=== PATIENT | male | born 1960 | race Caucasian/White ===

== ENCOUNTER 2016-12-29 07:31 | Inpatient (IN) | payer MEDICARE, MEDICAID ==
[2016-12-29] VITALS (29 sets, daily range): BP systolic 166–252; BP diastolic 76–151; PULSE 60–82; RESP 11–29; TEMP 97.7–98.3; O2SAT 97–100
[~2016-12-29] VITALS: Ht 170.2 cm; Wt 67.2 kg
[~2016-12-29 07:31] MED LIST: AMLO5 PO; ATOR10 PO; ECOT81TA2 PO; HYDR-2768 PO; HYDRA50 PO; PRED10 PO
--- NOTE | 2016-12-29 07:59 | PD ---
HPI Chief Complaint: Neuro Symptoms/ Deficits Time Seen by Provider: 07:41 Travel History International Travel<30 days: No Contact w/Intl Traveler<30days: No Traveled to known affect area: No History of Present Illness HPI This patient presents with acute neurologic deficit. At 2 AM last night he woke up and was slurring his speech and had some right sided leg weakness and felt dizzy. He did not of headache or head injury. He went back to bed and when he woke up this morning symptoms persisted and he came to the ER. Duration is at least 6 hours but could've been longer given he was sleeping. Patient has history of stroke and intracranial hemorrhage and has a GROUNDS CARETAKER shunt. He is very noncompliant. He doesn't go to a physician or take any medications like his posterior. He doesn't treat his hypertension. He arrives with a blood pressure of 252 systolic. His last cocaine use was 5 years ago. He continues to smoke. He does not take his daily aspirin. Symptoms are severe. No alleviating factors. Symptoms exacerbated by noncompliance PFSH Past Medical History Hx Anticoagulant Therapy: Yes (162 ASA) Arthritis: Yes (HANDS) Asthma: No Autoimmune Disease: No Blood Disorders: No Anxiety: No Depression: No Heart Rhythm Problems: Yes (SVT) Cancer: No Cardiac Catheterization: Yes (2006) Cardiovascular Problems: Yes High Cholesterol: No Chemotherapy: No Chest Pain: Yes Congestive Heart Failure: No COPD: No Cerebrovascular Accident: Yes Coronary Artery Disease: Yes Diabetes: No Diminished Hearing: No Endocrine: No Gastrointestinal Disorders: No GERD: Yes Glaucoma: No Genitourinary: No Headaches: Yes (OCCASSIONALLY) Hepatitis: No Hiatal Hernia: No Hypertension: Yes Immune Disorder: No Implanted Vascular Access Dvce: No Kidney Stones: No Musculoskeletal: No Neurologic: No Psychiatric: No Reproductive: No Respiratory: Yes Immunizations Current: No Migraines: No Myocardial Infarction: No Radiation Therapy: No Renal Failure: No Seizures: Yes ("YEARS AGO") Sickle Cell Disease: No Sleep Apnea: No Thyroid Disease: No Ulcer: No PNEUMOCCOCAL Vaccine (Year): 1 ?: Not Past Surgical History Abdominal Surgery: No AICD: No Appendectomy: No Arteriovenous Shunt: No Cardiac Surgery: Yes (HEART STENT) Cholecystectomy: No Coronary Stent: Yes (X 1) Ear Surgery: No Endocrine Surgery: No Eye Surgery: No Genitourinary Surgery: No Gynecologic Surgery: No Insulin Pump: No Joint Replacement: No Neurologic Surgery: Yes (BRAIN ANUERYSM 2015, SHUNT IN BRAIN) Oral Surgery: No Pacemaker: No Thoracic Surgery: No Tonsillectomy: Yes Other Surgery: Yes (TRACH) Social History Alcohol Use: Yes (2 BEERS A DAY) Tobacco Use: Yes (1/2 PPD) Substance Use: Yes ("YEARS AGO, A LITTLE OF EVERYTHING") Allergies-Medications (Allergen,Severity, Reaction): Coded Allergies: lisinopril (Unverified Allergy, Severe, Angioedema, 12/29/16) Reported Meds & Prescriptions Reported Meds & Active Scripts Active Review of Systems General / Constitutional: No: Fever Eyes: No: Visual changes HENT: Positive: Lightheadedness, No: Headaches Cardiovascular: No: Chest Pain or Discomfort Respiratory: No: Shortness of Breath Gastrointestinal: No: Abdominal Pain Genitourinary: No: Dysuria Musculoskeletal: Positive: Weakness, No: Pain Skin: No Rash Neurologic: Positive: Weakness, Dizziness, Slurred Speech Psychiatric: No: Depression Endocrine: No: Polydipsia Hematologic/Lymphatic: No: Easy Bruising Physical Exam Narrative GENERAL: Well-nourished, well-developed patient in no apparent distress. SKIN: Focused skin assessment reveals no rash and nodules. Skin is Warm and dry. HEAD: Atraumatic. HAs a right sided GROUNDS CARETAKER shunt without tenderness or erythema . EYES: Pupils equal and round. No scleral icterus. No injection or drainage. ENT: No nasal bleeding or discharge. Mucous membranes pink and moist. NECK: Trachea midline. No JVD. CARDIOVASCULAR: Regular rate and rhythm. No murmur appreciated. RESPIRATORY: No accessory muscle use. Clear to auscultation. Breath sounds equal bilaterally. GASTROINTESTINAL: Abdomen soft, non-tender, nondistended. Hepatic and splenic margins not palpable. MUSCULOSKELETAL: No obvious deformities. No clubbing. No cyanosis. No edema. NEUROLOGICAL: Awake and alert. Has a right sided facial droop. Motor exam reveals right sided leg weakness but symmetrical arm strength. Slurring of speech. Sensation subjectively intact to light and sharp touch PSYCHIATRIC: Appropriate mood and affect; insight and judgment poor . Data Data Last Documented VS Vital Signs Date Time Temp Pulse Resp B/P (MAP) Pulse Ox O2 Delivery O2 Flow Rate FiO2 12/29/16 09:16 68 18 197/88 (124) 99 Room Air 12/29/16 07:35 97.8 Orders Orders Electrocardiogram (12/29/16 07:50) Prothrombin Time / Inr (Pt) (12/29/16 07:50) Act Partial Throm Time (Ptt) (12/29/16 07:50) Complete Blood Count With Diff (12/29/16 07:50) Basic Metabolic Panel (Bmp) (12/29/16 07:50) Ct Brain W/O Iv Contrast(Rout) (12/29/16 07:50) Ecg Monitoring (12/29/16 07:50) Iv Access Insert/Monitor (12/29/16 07:50) Oximetry (12/29/16 07:50) Blood Glucose (12/29/16 07:50) Sodium Chloride 0.9% Flush (Ns Flush) (12/29/16 08:00) Labetalol Inj (Trandate Inj) (12/29/16 08:00) Admit Order (Ed Use Only) (12/29/16 09:39) Labs Laboratory Tests Test 12/29/16 07:35 White Blood Count 8.0 TH/MM3 Red Blood Count 4.17 MIL/MM3 Hemoglobin 12.0 GM/DL Hematocrit 35.9 % Mean Corpuscular Volume 86.2 FL Mean Corpuscular Hemoglobin 28.8 PG Mean Corpuscular Hemoglobin Concent 33.5 % Red Cell Distribution Width 14.3 % Platelet Count 196 TH/MM3 Mean Platelet Volume 9.4 FL Neutrophils (%) (Auto) 56.8 % Lymphocytes (%) (Auto) 27.4 % Monocytes (%) (Auto) 7.3 % Eosinophils (%) (Auto) 7.4 % Basophils (%) (Auto) 1.1 % Neutrophils # (Auto) 4.5 TH/MM3 Lymphocytes # (Auto) 2.2 TH/MM3 Monocytes # (Auto) 0.6 TH/MM3 Eosinophils # (Auto) 0.6 TH/MM3 Basophils # (Auto) 0.1 TH/MM3 CBC Comment DIFF FINAL Differential Comment Prothrombin Time 10.2 SEC Prothromb Time International Ratio 0.9 RATIO Activated Partial Thromboplast Time 31.1 SEC Blood Urea Nitrogen 32 MG/DL Creatinine 1.80 MG/DL Random Glucose 104 MG/DL Calcium Level 8.6 MG/DL Sodium Level 142 MEQ/L Potassium Level 4.3 MEQ/L Chloride Level 109 MEQ/L Carbon Dioxide Level 26.0 MEQ/L Anion Gap 7 MEQ/L Estimat Glomerular Filtration Rate 39 ML/MIN [facility] Medical Decision Making Medical Screen Exam Complete: Yes Emergency Medical Condition: Yes Medical Record Reviewed: Yes Differential Diagnosis Ischemic CVA, hemorrhagic CVA, hypertensive emergency Narrative Course I have reviewed the patient's electronic medical record. Reviewed his neurologic consultation from one year ago when he was admitted for ischemic stroke Patient arrives critically ill with acute neurologic deficit a blood pressure of 252 systolic IV placed I gave him 20 mg IV labetalol Brain CT is negative for hemorrhage. GROUNDS CARETAKER shunt in good position CBC normal Metabolic profile shows renal insufficiency with creatinine 1.8 Coagulation studies are normal I reviewed his EKG which shows sinus rhythm without ectopy or ST elevation. He does have inverted T waves in anterior and lateral leads Extended cardiac monitoring reveals sinus rhythm without ectopy Blood pressure after labetalol as 190s systolic and we will employ permissive hypertension Patient having acute ischemic stroke and hypertensive urgency Discussed with hospitalist will admit I gave him rectal aspirin Critical Care Narrative Aggregate critical care time was 35 minutes. Time to perform other separately billable procedures was not included in the critical care time. My time did not include minutes spent treating any other patients simultaneously or on activities that did not directly contribute to the patient's treatment. The services I provided to this patient were to treat and/or prevent clinically significant deterioration that could result in: Permanent neurologic deficit, brain stem herniation, cardiopulmonary arrest I provided critical care services requiring my management, as noted below: Chart data review, documentation time, medication orders and management, vital sign assessments/reviewing monitor data, ordering and reviewing lab tests, ordering and interpreting/reviewing x-rays and diagnostic studies, care of the patient and discussion of the patient with the admitting physicians. Diagnosis Primary Impression: Ischemic cerebrovascular accident (CVA) Additional Impression: Hypertensive urgency Admitting Information Admitting Physician Requests: Admit Raj Lubin MD Dec 29, 2016 07:59
[2016-12-29] MEDS ORDERED: LABETALOL HCL 100 MG/20 ML VIAL IV PUSH ONE (08:00)
[2016-12-29] MEDS ORDERED: SODIUM CHLORIDE 0.9% FLUSH 10 ML FLUSH IVF PRN (08:00)
[2016-12-29 08:01] LABS: AUTOMATED NEUTROPHIL # 4.5 TH/MM3 (1.8-7.7); BASOPHIL # 0.1 TH/MM3 (0-0.2); BASOPHIL % 1.1 % (0.0-2.0); EOSINOPHIL # 0.6 TH/MM3 (0-0.4); EOSINOPHIL % 7.4 % (0.0-4.0); HEMATOCRIT 35.9 % (39.0-51.0); HEMO FLAGS DIFF FINAL; LYMPH % 27.4 % (9.0-44.0); LYMPHOCYTE # 2.2 TH/MM3 (1.0-4.8); MEAN CELL VOLUME 86.2 FL (80.0-100.0); MEAN CORPUSCULAR HEMOGLOBIN 28.8 PG (27.0-34.0); MEAN CORPUSCULAR HGB CONC 33.5 % (32.0-36.0); MONO % 7.3 % (0.0-8.0); NEUT % 56.8 % (16.0-70.0); PLATELET COUNT 196 TH/MM3 (150-450); RED BLOOD COUNT 4.17 MIL/MM3 (4.50-5.90); RED CELL DISTRIBUTION WIDTH 14.3 % (11.6-17.2)
[2016-12-29 08:15] LABS: POTASSIUM 4.3 MEQ/L (3.5-5.1)
[2016-12-29 08:21] LABS: APTT (PATIENT) 31.1 SEC (24.3-30.1); INTERNATIONAL NORMALIZED RATIO 0.9 RATIO; PROTHROMBIN TIME - PATIENT 10.2 SEC (9.8-11.6)
--- NOTE | 2016-12-29 08:30 | RADRPT ---
EXAM DATE/TIME: 12/29/2016 08:15 [facility] COMPARISON: CT BRAIN W/O CONTRAST, November 02, 2015, 17:23. INDICATIONS : Slurred speech and right lower extremity weakness since early this morning. RADIATION DOSE: 64.21 CTDIvol (mGy) MEDICAL HISTORY : Cerebrovascular disease. Aneurysm, intracranial. Cardiovascular diseaseHypertension. SURGICAL HISTORY : Coronary artery stent. 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 Aneurysm repair. ENCOUNTER: Initial ACUITY: 1 day PAIN SCALE: 0/10 LOCATION: cranial TECHNIQUE: Multiple contiguous axial images were obtained of the head. Using automated exposure control and adj ustment of the mA and/or kV according to patient size, radiation dose was kept as low as reasonably a chievable to obtain optimal diagnostic quality images. DICOM format image data is available electro nically for review and comparison. FINDINGS: CEREBRUM: There's been a right-sided frontal ventriculostomy catheter with tip overlying the third ventricle . The ventricles are normal for age. No evidence of midline shift, mass lesion, hemorrhage or acute i nfarction. There are multiple low-density areas within the basal ganglia and deep white matter tracts consistent with old lacunar infarcts. Its unchanged since October 2015. No extra-axial fluid [place] ections are seen. Aneurysm coil is stable POSTERIOR FOSSA: The cerebellum and brainstem are intact. The 4th ventricle is midline. The cerebellopontine angle i s unremarkable. EXTRACRANIAL: The visualized portion of the orbits is intact. SKULL: The calvaria is intact. No evidence of skull fracture. CONCLUSION: No evidence of acute hemorrhage, edema, mass or mass effect. Ventriculostomy catheter in good positio n. No concerning masses are identified. No interval change. Gopi Vaca MD on December 29, 2016 at 8:27 Board Certified Radiologist. This report was verified electronically.
[2016-12-29] MEDS ORDERED: ASPIRIN 300 MG SUPP RECTAL ONE (09:45)
[2016-12-29] MEDS ORDERED: SODIUM CHLOR 0.9% 1000 ML INJ 1,000 ML IV SCH (10:56)
[2016-12-29] MEDS ORDERED: cloNIDine HCL 0.1 MG TAB PO PRN (11:00)
[2016-12-29] MEDS ORDERED: GLUCAGON 1 MG/ML VIAL OTHER PRN (11:00)
[2016-12-29] MEDS ORDERED: DEXTROSE 50% IN WATER 50 ML VIAL(D50) IV PUSH PRN (11:00)
[2016-12-29] MEDS ORDERED: SODIUM CHLORIDE 0.9% FLUSH 5 ML FLUSH IV FLUSH PRN (11:00)
[2016-12-29] MEDS: INSULIN ASPART SUPPLEMENTAL SCALE SQ SCH ×3 (12:00→21:00)
[2016-12-29 12:42] LABS: ALT (GPT) 15 U/L (12-78); AST (GOT) 13 U/L (15-37)
[2016-12-29 12:45] LABS: ALKALINE PHOSPHATASE 95 U/L (45-117)
[2016-12-29] MEDS ORDERED: LABETALOL HCL 100 MG/20 ML VIAL IV PUSH PRN (12:45)
[2016-12-29 12:47] LABS: INDIRECT BILIRUBIN 0.4 MG/DL (0.0-0.8); TOTAL BILIRUBIN ADULT 0.5 MG/DL (0.2-1.0)
--- NOTE | 2016-12-29 13:19 | EKG ---
Date Performed: 12/29/2016 Time Performed: 07:39:49 PTAGE: 56 years EKG: Sinus rhythm ST/ T-WAVE ABNORMALITY, CONSIDER ANTEROLATERAL ISCHEMIA ABNORMAL ECG PREVIOUS TRACING : 11/03/2015 04.31 No significant change from previous tracing noted. DOCTOR: Emmett Garcia Interpretating Date/Time 12/29/2016 13:17:14
--- NOTE | 2016-12-29 13:34 | HHI.HP ---
[facility] Service [facility] Primary Care Physician No Primary Care Physician Admission Diagnosis acute ischemic CVA,hypertensive urgency Diagnoses: (1) Ischemic cerebrovascular accident (CVA) (2) Accelerated hypertension Travel History International Travel<30 Days: No Contact w/Intl Traveler <30 Da: No Traveled to Known Affected Are: No History of Present Illness This is a pleasant 56 year-old male with past history of ischemic CVA , subarachnoid hemorrhage status post DUPLICATING MACHINE SERVICER shunt, hypertension, cocaine use, tobaccoism who presents to the ER today with slurred speech and some right- sided weakness beginning last night at about 2 AM. Patient waited until later in the morning to present to the ER. Patient currently states that his left leg feels numb and heavy. He states he currently does not have any weakness in the left arm. He does complain of difficulty speaking. The patient is supposed to be on blood pressure medication but does not take it. He does not take aspirin or a statin. The patient continues to smoke tobacco. The patient does have a history of cocaine use but denies any recent cocaine use over the past 5 years. Symptoms are severe. No palliative or provocative factors. In the emergency department a head CT was ordered which was negative for acute CVA or bleed, did show the DUPLICATING MACHINE SERVICER shunt in good position. Systolic blood pressure was 252 and the patient received IV labetalol. He received 300 mg rectal aspirin. Patient was admitted to the ICU for further care. Patient has passed a nursing bedside swallow evaluation. Review of Systems Constitutional: DENIES: Fever, Chills Eyes: DENIES: Blurred vision, Diplopia Ears, nose, mouth, throat: DENIES: Tinnitus, Throat pain Respiratory: DENIES: Cough, Shortness of breath Cardiovascular: DENIES: Chest pain, Palpitations Gastrointestinal: DENIES: Abdominal pain, Nausea, Vomiting Genitourinary: DENIES: Hematuria, Dysuria Musculoskeletal: DENIES: Back pain, Neck pain Integumentary: DENIES: Pruritus, Rash Hematologic/lymphatic: DENIES: Lymphadenopathy Neurologic: COMPLAINS OF: Localized weakness, Speech Problems, DENIES: Headache Psychiatric: DENIES: Anxiety, Confusion Past Family Social History Past Medical History Hypertension DUPLICATING MACHINE SERVICER shunt status post subarachnoid hemorrhage in 2015, shunt revision in 2016 Right MCA stroke in 2016 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 Tobaccoism Coronary artery disease with left heart catheterization in 2007 and stent to the LAD History of cocaine use greater than 5 years ago Past Surgical History DUPLICATING MACHINE SERVICER shunt and revision Tonsillectomy Tracheostomy Reported Medications Allergies Coded Allergies Type Severity Reaction Last Updated Verified lisinopril Allergy Severe Angioedema 12/29/16 No Active Scripts Medications Dose Route/Sig Max Daily Dose Days Date Category Allergies: Coded Allergies: lisinopril (Unverified Allergy, Severe, Angioedema, 12/29/16) Family History Heart disease in his father Social History Denies alcohol use. Does smoke tobacco. Physical Exam Vital Signs Vital Signs Date Time Temp Pulse Resp B/P (MAP) Pulse Ox O2 Delivery O2 Flow Rate FiO2 12/29/16 12:24 65 179/92 (121) 99 12/29/16 12:18 64 214/91 (132) 99 12/29/16 12:15 64 98 12/29/16 12:04 217/94 (135) 12/29/16 11:00 97.7 78 17 214/151 (172) 97 12/29/16 10:44 68 18 200/93 (128) 97 Room Air 12/29/16 09:16 68 18 197/88 (124) 99 Room Air 12/29/16 08:30 64 18 199/97 (131) 100 Room Air 12/29/16 08:06 18 100 Room Air 12/29/16 07:35 97.8 82 20 252/127 (168) 100 Physical Exam GENERAL: Well-nourished, well-developed lean male patient. SKIN: Warm and dry. EYES: No scleral icterus. No injection or drainage. NECK: Supple, trachea midline. No JVD or lymphadenopathy. CARDIOVASCULAR: Regular rate and rhythm without murmurs, gallops, or rubs. RESPIRATORY: Breath sounds equal bilaterally. No accessory muscle use. GASTROINTESTINAL: Bowel sounds normal. Abdomen soft, non-tender, nondistended. EXTREMITIES: No cyanosis, or edema. NEUROLOGICAL: Awake, alert, and oriented x 3. Minimal left lower extremity and left upper extremity weakness. Significant aphasia. Face symmetric. Cranial nerves II through XII intact. Pupils equal and reactive. Laboratory Laboratory Tests Test 12/29/16 07:35 White Blood Count 8.0 Red Blood Count 4.17 Hemoglobin 12.0 Hematocrit 35.9 Mean Corpuscular Volume 86.2 Mean Corpuscular Hemoglobin 28.8 Mean Corpuscular Hemoglobin Concent 33.5 Red Cell Distribution Width 14.3 Platelet Count 196 Mean Platelet Volume 9.4 Neutrophils (%) (Auto) 56.8 Lymphocytes (%) (Auto) 27.4 Monocytes (%) (Auto) 7.3 Eosinophils (%) (Auto) 7.4 Basophils (%) (Auto) 1.1 Neutrophils # (Auto) 4.5 Lymphocytes # (Auto) 2.2 Monocytes # (Auto) 0.6 Eosinophils # (Auto) 0.6 Basophils # (Auto) 0.1 CBC Comment DIFF FINAL Differential Comment Prothrombin Time 10.2 Prothromb Time International Ratio 0.9 Activated Partial Thromboplast Time 31.1 Blood Urea Nitrogen 32 Creatinine 1.80 Random Glucose 104 Calcium Level 8.6 Sodium Level 142 Potassium Level 4.3 Chloride Level 109 Carbon Dioxide Level 26.0 Anion Gap 7 Estimat Glomerular Filtration Rate 39 Total Bilirubin 0.5 Direct Bilirubin 0.1 Indirect Bilirubin 0.4 Aspartate Amino Transf (AST/SGOT) 13 Alanine Aminotransferase (ALT/SGPT) 15 Alkaline Phosphatase 95 Total Protein 7.1 Albumin 3.2 Result Diagram: 12/29/16 0735 12/29/16 0735 Caprini VTE Risk Assessment Caprini VTE Risk Assessment: No/Low Risk (score <= 1) Caprini Risk Assessment Model Point Value = 1 Point Value = 2 Point Value = 3 Point Value = 5 Age 41-60 Minor surgery BMI > 25 kg/m2 Swollen legs Varicose veins or History of unexplained or recurrent spontaneous Oral contraceptives or hormone replacement Sepsis (< 1 month) Serious lung disease, including pneumonia (< 1 month) Abnormal pulmonary function Acute myocardial infarction Congestive heart failure (< 1 month) History of inflammatory bowel disease Medical patient at bed rest Age 61-74 Arthroscopic surgery Major open surgery (> 45 min) Laparoscopic surgery (> 45 min) Malignancy Confined to bed (> 72 hours) Immobilizing plaster cast Central venous access Age >= 75 History of VTE Family history of VTE Factor V Leiden Prothrombin [id number] Lupus anticoagulant Anticardiolipin antibodies Elevated serum homocysteine Heparin-induced thrombocytopenia Other congenital or acquired thrombophilia Stroke (< 1 month) Elective arthroplasty Hip, pelvis, or leg fracture Acute spinal cord injury (< 1 month) Prophylaxis Regimen Total Risk Factor Score Risk Level Prophylaxis Regimen 0-1 Low Early ambulation 2 Moderate Order ONE of the following: *Sequential Compression Device (SCD) *Heparin 5000 units SQ BID 3-4 Higher Order ONE of the following medications: *Heparin 5000 units SQ TID *Enoxaparin/Lovenox 40 mg SQ daily (WT < 150 kg, CrCl > 30 mL/min) *Enoxaparin/Lovenox 30 mg SQ daily (WT < 150 kg, CrCl > 10-29 mL/min) *Enoxaparin/Lovenox 30 mg SQ BID (WT < 150 kg, CrCl > 30 mL/min) AND/OR *Sequential Compression Device (SCD) 5 or more Highest Order ONE of the following medications: *Heparin 5000 units SQ TID (Preferred with Epidurals) *Enoxaparin/Lovenox 40 mg SQ daily (WT < 150 kg, CrCl > 30 mL/min) *Enoxaparin/Lovenox 30 mg SQ daily (WT < 150 kg, CrCl > 10-29 mL/min) *Enoxaparin/Lovenox 30 mg SQ BID (WT < 150 kg, CrCl > 30 mL/min) AND *Sequential Compression Device (SCD) Assessment and Plan Assessment and Plan -Likely acute right hemispheric stroke, patient has history of right MCA stroke in 2016 - the patient presented with some left-sided weakness and dysarthria. Head CT negative. We'll proceed with MRI, Doppler carotid ultrasound, Holter monitor, echocardiogram, check lipid profile. Risk factors for stroke include tobacco use, uncontrolled hypertension. We'll consult neurology. Continue with aspirin. Consult PT ST and OT. -Chronic kidney disease stage III. Will repeat BMP in the morning. -Accelerated hypertension - will use labetalol IV when necessary systolic blood pressure greater than 220. Monitor in ICU. 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 -Coronary artery disease with left heart catheterization in 2007 and stent to the LAD - start aspirin. Check lipid profile. -History of cocaine use greater than 5 years ago - check urine drug screen with a severely elevated blood pressure. -DVT prophylaxis with SCDs. Mague Fagan MD Dec 29, 2016 13:34
--- NOTE | 2016-12-29 15:33 | RADRPT ---
EXAM DATE/TIME: 12/29/2016 15:23 [facility] COMPARISON: US CAROTID ARTERIES, November 03, 2015, 10:05. INDICATIONS : Cerebrovascular accident. MEDICAL HISTORY : Hypertension. Chronic obstructive pulmonary disease. Cerebrovascular accident. Coronary artery dis ease. Arthritis. SURGICAL HISTORY : Tonsillectomy. Cardiac catheterization. Coronary stent. Tracheotomy. 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 ENCOUNTER: Initial ACUITY: 1 day PAIN SCORE: 0/10 LOCATION: Bilateral neck PEAK SYSTOLIC VELOCITIES (cm/sec): ICA/CCA RATIO: Right: 1.3 Left: 1.2 ICA: Right: 88.1 Left: 69.5 CCA: Right: 69.3 Left: 56.4 ECA: Right: 97.4 Left: 136.9 VERTEBRAL: Right: 62.5 antegrade Left: 32.2 antegrade Elevated flow velocities and ICA/CCA ratios have been found to correlate with increased degrees of vessel stenosis, calculated as percentage of diameter relative to a normal segment of distal ICA/CCA FINDINGS: RIGHT CAROTID: Mild plaque distal CCA. Minimal plaque bulb and proximal internal carotid artery. LEFT CAROTID: Mild plaque distal CCA. Minimal plaque bulb and proximal internal carotid artery. VERTEBRAL ARTERIES: Antegrade flow is seen in both vertebral arteries. MISCELLANEOUS: None. CONCLUSION: Minimal to mild bilateral carotid atherosclerosis. No hemodynamically significant narrowing. Eros Wilson MD on December 29, 2016 at 15:30 Board Certified Radiologist. This report was verified electronically.
[2016-12-29 15:39] LABS: BLOOD, URINE NEG (NEG); GLUCOSE,URINE NEG (NEG); KETONE, URINE NEG (NEG); NITRITE,URINE NEG (NEG)
[2016-12-29 16:50] LABS: METHOD OF COLLECTION CLEAN CATCH; URINE COLOR STRAW (YELLW/STRAW)
[2016-12-29 16:51] LABS: COMMENT (UR) CULT NOT INDICATED; CULTURE IF INDICATED CULT NOT INDICATED; SQUAMOUS EPITHELIAL CELL URINE 0-5 /hpf (0-5)
[2016-12-29] MEDS ORDERED: SODIUM CHLORIDE 0.9% FLUSH 5 ML FLUSH IV FLUSH SCH (21:00)
[2016-12-29] MEDS ORDERED: ATORVASTATIN 80 MG TAB PO SCH (21:00)
[2016-12-30] VITALS (8 sets, daily range): BP systolic 170–188; BP diastolic 74–94; PULSE 64–77; RESP 18–22; TEMP 96.9–98.8; O2SAT 96–99
[2016-12-30] MEDS ORDERED: SODIUM CHLORIDE FLUSH PRN IV FLUSH (00:15)
[2016-12-30 05:14] LABS: POTASSIUM 4.4 MEQ/L (3.5-5.1)
[2016-12-30 05:17] LABS: BICARBONATE 24.5 MEQ/L (21.0-32.0)
[2016-12-30] MEDS: INSULIN ASPART SUPPLEMENTAL SCALE SQ SCH ×4 (08:00→21:00)
[2016-12-30] MEDS: ASPIRIN 325 MG TAB PO SCH (08:48)
[2016-12-30] MEDS: SODIUM CHLORIDE FLUSH BID IV FLUSH SCH ×2 (09:00→20:11)
[2016-12-30] MEDS ORDERED: INFLUENZA VIRUS VACCINE (QUADRIVALENT) 0.5 ML SYR IM ONE (10:00)
--- NOTE | 2016-12-30 10:13 | HHI.PR ---
Subjective Remarks Patient reports no improvement in speech. States today his right leg feels heavy and weak. MRI pending. Objective Vitals Vital Signs Date Time Temp Pulse Resp B/P (MAP) Pulse Ox O2 Delivery O2 Flow Rate FiO2 12/30/16 10:03 99 12/30/16 08:00 98.8 67 20 182/75 (110) 12/30/16 08:00 75 12/30/16 04:35 68 20 180/74 (109) 12/30/16 00:10 64 22 188/86 (120) 12/29/16 23:49 64 12/29/16 23:00 97 21 12/29/16 23:00 98.0 63 12 188/86 (120) 97 12/29/16 20:14 98.3 64 24 187/76 (113) 99 12/29/16 19:14 72 23 172/78 (109) 98 12/29/16 18:14 62 24 195/77 (116) 100 12/29/16 18:14 100 12/29/16 18:00 98.1 64 28 99 12/29/16 17:44 60 18 192/89 (123) 100 12/29/16 17:20 60 27 179/86 (117) 100 12/29/16 17:14 60 23 179/88 (118) 100 12/29/16 16:44 70 25 197/80 (119) 100 12/29/16 16:14 62 20 170/92 (118) 100 12/29/16 16:00 62 20 100 12/29/16 16:00 62 20 100 12/29/16 15:44 62 24 190/96 (127) 100 12/29/16 15:17 62 28 202/81 (121) 100 12/29/16 15:14 66 29 206/103 (137) 100 12/29/16 15:00 64 12/29/16 14:44 62 11 166/96 (119) 99 12/29/16 14:14 60 22 174/80 (111) 100 12/29/16 14:00 64 26 12/29/16 12:24 65 179/92 (121) 99 12/29/16 12:18 64 214/91 (132) 99 12/29/16 12:15 64 98 12/29/16 12:04 217/94 (135) 12/29/16 11:00 97.7 78 17 214/151 (172) 97 12/29/16 10:44 68 18 200/93 (128) 97 Room Air I/O 12/29/16 12/29/16 12/29/16 12/30/16 12/30/16 12/30/16 07:00 15:00 23:00 07:00 15:00 23:00 Intake Total 360 ml 100 ml Output Total 400 ml 600 ml 600 ml Balance -400 ml -240 ml -500 ml Intake Oral 360 ml 100 ml Output Urine Total 400 ml 600 ml 600 ml # Voids 1 5 # Bowel Movements 0 0 Result Diagram: 12/29/16 0735 12/30/16 0455 Objective Remarks GENERAL: Well-nourished, well-developed lean CM patient. SKIN: Warm and dry. HEAD: Normocephalic. EYES: No scleral icterus. No injection or drainage. NECK: Supple, trachea midline. No JVD or lymphadenopathy. Tracheostomy scar. CARDIOVASCULAR: Regular rate and rhythm without murmurs, gallops, or rubs. RESPIRATORY: Breath sounds equal bilaterally. No accessory muscle use. GASTROINTESTINAL: Abdomen soft, non-tender, nondistended. EXTREMITIES: No cyanosis, or edema. NEUROLOGICAL: Awake, alert, and oriented x 3. Speech dysarthric. RLE weakness 3/ 5. Score Caller strength equal b/l. Face symmetric. A/P Problem List: (1) Ischemic cerebrovascular accident (CVA) ICD Code: I63.9 - Cerebral infarction, unspecified Status: Acute (2) Accelerated hypertension ICD Code: I10 - Essential (primary) hypertension Status: Acute Assessment and Plan -Acute CVA, patient has history of right MCA stroke in 2016 - the patient presented with some left-sided weakness and dysarthria. Today has RLE weakness. Head CT negative. Brain MRI pending. Doppler carotid ultrasound negative. Holter monitor, echocardiogram, lipid profile pending. Risk factors for stroke include tobacco use, uncontrolled hypertension. Neurology consulted. Continue with aspirin. Cont PT ST and OT. -Chronic kidney disease stage III. stable on repeat BMP. -Accelerated hypertension - will use labetalol IV when necessary systolic blood pressure greater than 220. Monitor in ICU. Start hydralazine 50 mg TID, norvasc 10 mg daily. 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 -Coronary artery disease with left heart catheterization in 2007 and stent to the LAD - start aspirin. Check lipid profile. -History of cocaine use greater than 5 years ago - urine drug screen negative. -DVT prophylaxis with SCDs. Mague Fagan MD Dec 30, 2016 10:13
[2016-12-30 10:17] LABS: HDL CHOLESTEROL 30.4 MG/DL (40.0-60.0)
--- NOTE | 2016-12-30 10:37 | MB ---
cc: SHARON HASSAN MD DATE OF CONSULTATION: 12/29/2016 REASON FOR CONSULTATION: Stroke. HISTORY OF PRESENT ILLNESS Mr. Marinelli is a 56-year-old male with past medical history of ischemic stroke with residual right-sided upper and lower extremity weakness and dysarthria, subarachnoid hemorrhage status post CHILD LIFE THERAPIST shunt placement, hypertension, cocaine use and heavy smoker, presented to the [facility] Emergency Room with slurred speech and increasing right-sided weakness that began the night before the day he presented. The patient also states that he is generally weak, denies headache, double vision or blurred vision. There is mild difficulty in speech. He does not take blood pressure medication or blood thinner. In the emergency department his blood pressure was noted to be 252/127. Head CT scan revealed right-sided frontal ventriculostomy with tip overlying the third ventricle, no evidence of midline shift, multiple low density areas within the basal ganglia and deep white matter consistent with old lacunar infarctions. REVIEW OF SYSTEMS A 12-point review of systems is negative except for what is stated in HPI. PAST MEDICAL HISTORY 1. Hypertension. 2. Right MCA stroke in 2016. 3. CHILD LIFE THERAPIST shunt status post subarachnoid hemorrhage in 2014. 4. Shunt revision in 2016. 5. 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. 6. Tobaccoism. 7. Coronary artery disease. 8. Left heart catheterization. 9. History of cocaine. PAST SURGICAL HISTORY 1. CHILD LIFE THERAPIST shunt and revision. 2. Tonsillectomy. 3. Tracheostomy. ALLERGIES LISINOPRIL. FAMILY HISTORY Heart disease in father. SOCIAL HISTORY Denies alcohol use. Smokes tobacco, and cocaine. MEDICATIONS No home medications. PHYSICAL EXAMINATION GENERAL: Awake, alert, pleasant, slurred speech but good historian. HEENT: Atraumatic, normocephalic. CHILD LIFE THERAPIST shunt through the scalp visible and palpable through the scalp. Intact hearing. Intact vision. CARDIOVASCULAR: Regular rate and rhythm. RESPIRATORY: Clear to auscultation. No wheezes. GASTROINTESTINAL: Soft abdomen. No tenderness. EXTREMITIES: No cyanosis or edema. NEUROLOGIC: Awake, alert, oriented to time, person and place. Slurred speech, chronic. Mild left facial palsy, chronic with pyramidal weakness of the left upper and lower extremity. No nystagmus. No diplopia. No ptosis. Intact sensation bilateral symmetrical throughout. PSYCHIATRIC: Appropriate mood and behavior. DIAGNOSTIC TESTING LABORATORY DATA WBC is 8, hemoglobin 12, platelet count 196, sodium 142, potassium 4.3, anion gap 7, BUN 32, creatinine 1.8, AST 13, ALT 15, albumin 3.2. UDS is negative. INR is 9. IMAGING STUDIES - Head CT scan without contrast on 12/29/2016, no evidence of acute hemorrhage, edema or mass effect, ventriculostomy catheter in good position, no concerning masses are identified. - MRI brain without contrast on 11/03/2015 with acute lacunar infarct in the posterior limb of internal capsule on the right. DIAGNOSTIC IMPRESSION 1. TIA. 2. 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 Hypertensive urgency. 4. Subarachnoid hemorrhage in 2014, status post CHILD LIFE THERAPIST shunt. 5. Coronary artery disease. PLAN 1. Neuro checks q. one hourly. 2. Aspirin 325 mg daily. 3. Carotid ultrasound. 4. Cardiac echo. 5. MRI brain without contrast. 6. Treat hypertension, goal 130-135/75-80. 7. Telemetry. 8. DVT prophylaxis. 9. SCD prophylaxis. 10. PT/OT recommendations are appreciated. Thank you for the opportunity to participate in the care of your patient. MD PREET Rios/BRANDY /12:39 AM /11:15 AM RACQUEL
[2016-12-30 12:05] LABS: HEMOGLOBIN A1a 0.7 %; HEMOGLOBIN F 1.1 %; HEMOGLOBIN LA1C 2.1 %; HEMOGLOBIN P3 5.8 %
[2016-12-30] MEDS: hydrALAZINE HCL 50 MG TAB PO SCH ×2 (13:00→21:40)
--- NOTE | 2016-12-30 13:36 | ECHRPT ---
Indication: cva/tia CONCLUSIONS Mildly dilated left ventricle. Mild concentric left ventricular hypertrophy. The left ventricular systolic function is low normal with an estimated ejection fraction in the rang e of 50%. Doppler parameters are consistent with impaired left ventricular relaxtion (grade 1 diastolic dysfun ction). Mbbw-eu-vwicmmfx mitral valve regurgitation. Zzkg-hl-awczfacb aortic valve regurgitation, eccentric jet against the mitral annulus. BP: / HR: Rhythm: MEASUREMENTS (Male / Female) Normal Values Technical Quality:Good 2D ECHO LV Diastolic Diameter PLAX 5.5 cm 4.2 - 5.9 / 3.9 - 5.3 cm LV Systolic Diameter PLAX 4.2 cm IVS Diastolic Thickness 1.4 cm 0.6 - 1.0 / 0.6 - 0.9 cm LVPW Diastolic Thickness 1.1 cm 0.6 - 1.0 / 0.6 - 0.9 cm LV Relative Wall Thickness 0.5 RV Internal Dim ED PLAX 1.9 cm LA Systolic Diameter LX 4.4 cm 3.0 - 4.0 / 2.7 - 3.8 cm DOPPLER MR Peak Velocity 508.0 cm/s MR Peak Gradient 103.2 mmHg Mitral E Point Velocity 61.7 cm/s Mitral A Point Velocity 91.3 cm/s Mitral E to A Ratio 0.7 TR Peak Velocity 110.0 cm/s TR Peak Gradient 4.8 mmHg Right Atrial Pressure 10.0 mmHg Pulmonary Artery Systolic Pressu 14.8 mmHg Right Ventricular Systolic Press 14.8 mmHg FINDINGS LEFT VENTRICLE Mildly dilated left ventricle. Mild concentric left ventricular hypertrophy. The left ventricular systolic function is low normal with an estimated ejection fraction in the rang e of 50%. Doppler parameters are consistent with impaired left ventricular relaxtion (grade 1 diastolic dysfun ction). RIGHT VENTRICLE Normal right ventricular size and systolic function. LEFT ATRIUM The left atrial size is mildly dilated. RIGHT ATRIUM The right atrial size is normal. ATRIAL SEPTUM Normal atrial septal thickness without atrial level shunting by limited color doppler interrogation. AORTA The aortic root and proximal ascending aorta are normal in size on limited imaging. MITRAL VALVE Structurally normal mitral valve. Mild mitral annular calcification. Qoyx-gn-ngvtrmio mitral valve regurgitation. No mitral valve stenosis. AORTIC VALVE Aortic valve sclerosis is present. Lqmu-qz-rnkdxrcu aortic valve regurgitation, eccentric jet against the mitral annulus No aortic valve stenosis. TRICUSPID VALVE Structurally normal tricuspid valve. No tricuspid valve stenosis or regurgitation. PULMONARY VALVE The pulmonary valve is not well visualized. VESSELS The inferior vena cava is normal in size. PERICARDIUM No pericardial effusion. Dewey Emanuel DO (Electronically Signed) Final Date:30 December 2016 13:35
--- NOTE | 2016-12-30 17:32 | RADRPT ---
EXAM DATE/TIME: 12/30/2016 16:49 [facility] COMPARISON: CHEST SINGLE AP, November 12, 2015, 0:09. INDICATIONS : Cough. MEDICAL HISTORY : Hypertension. Chronic obstructive pulmonary disease. Coronary artery disease. Cerebrovascular a ccident. SURGICAL HISTORY : Cardiac catheterization. Coronary stent. Tracheotomy. MANAGER SITE shunt. ENCOUNTER: Initial ACUITY: 1 day PAIN SCORE: 0/10 LOCATION: Bilateral chest FINDINGS: A single view of the chest demonstrates the lungs to be symmetrically aerated without evidence of mas s, infiltrate or effusion. The cardiomediastinal contours are unremarkable. Osseous structures are intact. CONCLUSION: No acute disease. MANAGER SITE shunt is evident. Geo Roman MD FACR on December 30, 2016 at 17:29 Board Certified Radiologist. This report was verified electronically.
[2016-12-30] MEDS: ATORVASTATIN 40 MG TAB PO SCH (20:15)
[2016-12-31] VITALS (10 sets, daily range): BP systolic 143–212; BP diastolic 78–98; PULSE 75–94; RESP 18–21; TEMP 97.1–97.8; O2SAT 96–99
[2016-12-31] MEDS: hydrALAZINE HCL 50 MG TAB PO SCH ×3 (06:31→22:30)
[2016-12-31] MEDS: ASPIRIN 325 MG TAB PO SCH (08:05)
[2016-12-31] MEDS: SODIUM CHLORIDE FLUSH BID IV FLUSH SCH ×2 (08:06→20:49)
[2016-12-31] MEDS: INSULIN ASPART SUPPLEMENTAL SCALE SQ SCH ×4 (08:09→19:34)
--- NOTE | 2016-12-31 10:20 | RADRPT ---
EXAM DATE/TIME: 12/31/2016 00:00 [facility] COMPARISON: No previous studies available for comparison. INDICATIONS : Dysphagia. FLUORO TIME: 3.9 minutes IMAGE COUNT: 0 CONTRAST: Dose as prescribed by speech pathologist. MEDICAL HISTORY : Cerebrovascular disease. Aneurysm, intracranial. Hypertension. SURGICAL HISTORY : coronary artery stent, MANAGER CUSTOMER SERVICE shunt, aneurysm repair ENCOUNTER: Initial ACUITY: 2 days PAIN SCORE: 0/10 LOCATION: Bilateral neck FINDINGS: A modified barium swallow was performed with speech pathology. Patient was given a variety of liquids to swallow. The patient aspirated with thin liquids and with nectar thick wall using a straw. For a full detailed report, see report by the speech pathologist. CONCLUSION: Aspiration occurred with thin liquids. Please refer to speech pathology report for full details. Eros Greer MD on December 31, 2016 at 10:15 Board Certified Radiologist. This report was verified electronically.
--- NOTE | 2016-12-31 12:10 | RADRPT ---
EXAM DATE/TIME: 12/31/2016 10:15 [facility] COMPARISON: No previous studies available for comparison. INDICATIONS : CVA. MEDICAL HISTORY : Hypertension. Stroke LAND CLEARER shunt SURGICAL HISTORY : Aneurysm coiling, LAND CLEARER shunt. ENCOUNTER: Initial ACUITY: 3 day PAIN SCORE: 0/10 LOCATION: head TECHNIQUE: Multiplanar, multisequence MRI of the brain was performed without contrast. FINDINGS: There is a small area of focally restricted diffusion involving the paramedian anterior left alexis con sistent with early subacute pontine infarction. There are scattered smaller foci more posteriorly in the pontomedullary junction region. Elsewhere, there are scattered benign-appearing areas of white matter signal change including some gl iosis along a previous tracheostomy tract in the right frontal region. There is artifact associated w ith presumed calvarial reconstruction in the right frontal region. There are old bilateral thalamic l acunar infarcts and lacunar infarcts in the peralta radiata bilaterally. There is no evidence of intracranial hemorrhage or mass. The extracranial structures are grossly ted gn. CONCLUSION: Subacute brainstem infarcts. Chronic ischemic changes and scattered supratentorial lacunar infarcts w hich appear old Eros Hassan MD on December 31, 2016 at 11:56 Board Certified Radiologist. This report was verified electronically.
--- NOTE | 2016-12-31 14:35 | HHI.PR ---
Subjective Remarks Follow-up for dysarthria and right-sided weakness. Patient stated right sided weakness is improving but continues to dysarthria. otherwise he has no complaints. his nurse is at the bedside during the interview. Objective Vitals Vital Signs Date Time Temp Pulse Resp B/P (MAP) Pulse Ox O2 Delivery O2 Flow Rate FiO2 12/31/16 12:04 97.8 94 18 167/79 (108) 97 12/31/16 11:51 83 12/31/16 09:28 96 Nasal Cannula 2.00 12/31/16 08:00 97.1 76 18 186/84 (118) 97 12/31/16 06:44 97.8 77 20 212/98 (136) 97 12/31/16 00:56 97.6 75 20 178/85 (116) 98 12/30/16 20:33 97 21 12/30/16 20:00 96.9 70 20 176/94 (121) 98 12/30/16 15:04 98.0 77 18 170/85 (113) 96 12/30/16 15:00 74 I/O 12/30/16 12/30/16 12/30/16 12/31/16 12/31/16 12/31/16 07:00 15:00 23:00 07:00 15:00 23:00 Intake Total 100 ml 240 ml 120 ml 240 ml Output Total 600 ml 750 ml 375 ml 200 ml 300 ml Balance -500 ml -750 ml -135 ml -80 ml -60 ml Intake Oral 100 ml 240 ml 120 ml 240 ml Output Urine Total 600 ml 750 ml 375 ml 200 ml 300 ml # Voids 5 2 # Bowel Movements 0 Result Diagram: 12/29/16 0735 12/30/16 0455 Imaging Last Impressions Modified Barium Swallow 12/31/16 0000 Signed Impressions: Service Date/Time: Saturday, December 31, 2016 00:00 - CONCLUSION: Aspiration occurred with thin liquids. Please refer to speech pathology report for full details. Eros Greer MD Brain MRI 12/31/16 0000 Signed Impressions: Service Date/Time: Saturday, December 31, 2016 10:15 - CONCLUSION: Subacute brainstem infarcts. Chronic ischemic changes and scattered supratentorial lacunar infarcts which appear old Eros Hassan MD Chest X-Ray 12/30/16 0000 Signed Impressions: Service Date/Time: Friday, December 30, 2016 16:49 - CONCLUSION: No acute disease. POTTERY DECORATOR shunt is evident. Geo Roman MD FACR Head CT 12/29/16 0750 Signed Impressions: Service Date/Time: Thursday, December 29, 2016 08:15 - CONCLUSION: No evidence of acute hemorrhage, edema, mass or mass effect. Ventriculostomy catheter in good position. No concerning masses are identified. No interval change. Gopi Vaca MD Carotid Artery Ultrasound 12/29/16 0000 Signed Impressions: Service Date/Time: Thursday, December 29, 2016 15:23 - CONCLUSION: Minimal to mild bilateral carotid atherosclerosis. No hemodynamically significant narrowing. Eros Wilson MD Objective Remarks GENERAL: Well-nourished, well-developed lean CM patient. SKIN: Warm and dry. HEAD: Normocephalic. EYES: No scleral icterus. No injection or drainage. NECK: Supple, trachea midline. No JVD or lymphadenopathy. Tracheostomy scar. CARDIOVASCULAR: Regular rate and rhythm without murmurs, gallops, or rubs. RESPIRATORY: Breath sounds equal bilaterally. No accessory muscle use. GASTROINTESTINAL: Abdomen soft, non-tender, nondistended. EXTREMITIES: No cyanosis, or edema. NEUROLOGICAL: Awake, alert, and oriented x 3. Speech dysarthric. 5 out of 5 bilateral upper extremity strength. Right lower extremity strength 4 out of 5. Recruit Instructor strength equal b/l. Face symmetric. Medications and IVs Current Medications Sodium Chloride (NS Flush) 2 ml UNSCH PRN IVF FLUSH AFTER USING IV ACCESS; Start 12/29/16 at 08:00; Stop 12/29/16 at 11:33; Status DC Labetalol HCl (Trandate Inj) 20 mg ONCE ONCE IV PUSH Last administered on 12/29 08:11; Start 12/29/16 at 08:00; Stop 12/29/16 at 08:01; Status DC Aspirin (Aspirin Supp) 300 mg ONCE ONCE RECTAL Last administered on 12/29/16 09:59; Start 12/29/16 at 09:45; Stop 12/29/16 at 09:46; Status DC IV Flush (NS Flush) 2 ml BID IV FLUSH ; Start 12/29/16 at 21:00; Stop 12/30/16 at 00:13; Status DC IV Flush (NS Flush) 2 ml UNSCH PRN IV FLUSH FLUSH AFTER USING IV ACCESS; Start 12/29/16 at 11:00; Stop 12/30/16 at 00:13; Status DC Sodium Chloride 1,000 ml @ 70 mls/hr [id number] IV ; Start 12/29/16 at 10:56; Stop 12/29/16 at 13:20; Status DC Aspirin (Aspirin) 325 mg DAILY PO Last administered on 12/31/16 08:05; Start 12/30/16 at 09:00 Atorvastatin Calcium (Lipitor) 80 mg HS PO Last administered on 12/29/16 19:43 ; Start 12/29/16 at 21:00; Stop 12/30/16 at 19:52; Status DC Insulin Aspart (NovoLOG SUPPLEMENTAL SCALE) 1 ACHS SQ ; Start 12/29/16 at 12:00 Dextrose (D50w (Vial) Inj) 50 ml UNSCH PRN IV PUSH HYPOGLYCEMIA-SEE COMMENTS; Start 12/29/16 at 11:00 Glucagon (Glucagon Inj) 1 mg UNSCH PRN OTHER HYPOGLYCEMIA-SEE COMMENTS; Start 12/29/16 at 11:00 Clonidine (Catapres) 0.1 mg Q6H PRN PO SBP>200 Last administered on 12/29/16 11:46; Start 12/29/16 at 11:00; Stop 12/29/16 at 12:46; Status DC Labetalol HCl (Trandate Inj) 10 mg Q2H PRN IV PUSH For SBP > 220 or DBP > 120; Start 12/29/16 at 12:45 Influenza Virus Vaccine (Flu (Quadrivalent) Vaccine Inj) 0.5 ml ONCE ONCE IM Last administered on 12/30/16 08:50; Start 12/30/16 at 10:00; Stop 12/30/16 at 10:01; Status DC Sodium Chloride (NS Flush) 2 ml BID IV FLUSH Last administered on 12/31/16 08: 06; Start 12/30/16 at 09:00 Sodium Chloride (NS Flush) 2 ml UNSCH PRN IV FLUSH FLUSH AFTER USING IV ACCESS ; Start 12/30/16 at 00:15 Amlodipine Besylate (Norvasc) 10 mg DAILY PO Last administered on 12/31/16 08: 05; Start 12/30/16 at 09:00 Hydralazine HCl (Apresoline) 50 mg Q8HR PO Last administered on 12/31/16 06:31 ; Start 12/30/16 at 14:00 Atorvastatin Calcium (Lipitor) 80 mg HS PO Last administered on 12/30/16 20:15 ; Start 12/30/16 at 21:00 A/P Problem List: (1) Ischemic cerebrovascular accident (CVA) ICD Code: I63.9 - Cerebral infarction, unspecified Status: Acute (2) Accelerated hypertension ICD Code: I10 - Essential (primary) hypertension Status: Acute Assessment and Plan Acute CVA, patient has history of right MCA stroke in 2016 - the patient presented with some left-sided weakness and dysarthria that has improved. -Head CT brain negative. - Brain MRI subacute brainstem infarct. chronic ischemic changes and scattered supratentorial, carotid ultrasound showed mild atherosclerosis. -Pending echo. -Patient had a barium swallow study which showed that he is aspirating on thin liquids. Recommendation per speech therapist. -PT and OT consulted. -Continue with permissive hypertension per neurologist. -Chronic kidney disease stage III. -stable on repeat BMP. Accelerated hypertension - will use labetalol IV when necessary systolic blood pressure greater than 220. POTTERY DECORATOR shunt status post subarachnoid hemorrhage in 2014, shunt revision in 2016 History of 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 Tobaccoism - cessation counseled. Coronary artery disease with left heart catheterization in 2007 and stent to the LAD - start aspirin. Check lipid profile. History of cocaine use greater than 5 years ago -urine drug screen negative. -DVT prophylaxis with SCDs. Cristin Rice MD Dec 31, 2016 14:35
--- NOTE | 2016-12-31 16:58 | HHI.PR ---
Review/Management Diagnosis 1. Acute/subacute ischemic stroke, left pontine lacune 2.. 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 Hypertensive urgency. 4. Subarachnoid hemorrhage in 2015, status post SPARKER AND PATCHER shunt. 5. Coronary artery disease. Plan 1. Neuro checks q. one hourly. 2. Aspirin 325 mg daily. 3. Manage BP, goal 130-135/75-80. 4. Patient needs rehab 5. DVT prophylaxis. 6. SCD prophylaxis. 7. PT/OT recommendations are appreciated 8. 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 Diagnosis/Plan: Subjective Subjective Comments No acute events reported MRI brain revealed sub acute left pontine ischemic lacunar infarct CUS unremarkable for a hemodynamically significant stenosis Barium swallow revealed aspiration Active Medications Current Medications Medications (Trade) Dose Ordered Sig/Radha Route Start Time Stop Time Status Last Admin (Aspirin) 325 mg DAILY PO 12/30/16 09:00 12/31/16 08:05 (NovoLOG SUPPLEMENTAL SCALE) 1 ACHS SQ 12/29/16 12:00 (D50w (Vial) Inj) 50 ml UNSCH PRN IV PUSH 12/29/16 11:00 (Glucagon Inj) 1 mg UNSCH PRN OTHER 12/29/16 11:00 (Trandate Inj) 10 mg Q2H PRN IV PUSH 12/29/16 12:45 (NS Flush) 2 ml BID IV FLUSH 12/30/16 09:00 12/31/16 08:06 (NS Flush) 2 ml UNSCH PRN IV FLUSH 12/30/16 00:15 (Norvasc) 10 mg DAILY PO 12/30/16 09:00 12/31/16 08:05 (Apresoline) 50 mg Q8HR PO 12/30/16 14:00 12/31/16 14:49 (Lipitor) 80 mg HS PO 12/30/16 21:00 12/30/16 20:15 Allergies Allergies Coded Allergies lisinopril (Unverified Allergy, Severe, Angioedema, 12/29/16) Review of Systems All other ROS: ROS reviewed as documented in chart Exam I&O / VS 12/31/16 12/31/16 01/01/17 15:00 23:00 07:00 Intake Total 240 ml Output Total 300 ml Balance -60 ml Intake Oral 240 ml Output Urine Total 300 ml Vital Signs Date Time Temp Pulse Resp B/P (MAP) Pulse Ox O2 Delivery O2 Flow Rate FiO2 12/31/16 16:35 97.2 83 18 191/91 (124) 99 12/31/16 12:04 97.8 94 18 167/79 (108) 97 12/31/16 11:51 83 12/31/16 09:28 96 Nasal Cannula 2.00 12/31/16 08:00 97.1 76 18 186/84 (118) 97 12/31/16 06:44 97.8 77 20 212/98 (136) 97 12/31/16 00:56 97.6 75 20 178/85 (116) 98 12/30/16 20:33 97 21 12/30/16 20:00 96.9 70 20 176/94 (121) 98 General: No acute distress Exam Comments GENERAL: Awake, alert, pleasant, slurred speech . HEENT: Atraumatic, normocephalic. SPARKER AND PATCHER shunt through the scalp visible and palpable through the scalp. Intact hearing. Intact vision. CARDIOVASCULAR: Regular rate and rhythm. RESPIRATORY: Clear to auscultation. No wheezes. GASTROINTESTINAL: Soft abdomen. No tenderness. EXTREMITIES: No cyanosis or edema. NEUROLOGIC: Awake, alert, oriented to time, person and place. Slurred speech, chronic. Mild left facial palsy, chronic with pyramidal weakness of the left upper and lower extremity/chronic spastic, and pyramidal weakness of right UE&LE /normal tone. No nystagmus. No diplopia. No ptosis. Intact sensation bilateral symmetrical throughout. PSYCHIATRIC: Appropriate mood and behavior. Objective Radiology Results Last 72 hours Impressions Modified Barium Swallow 12/31/16 0000 Signed Impressions: Service Date/Time: Saturday, December 31, 2016 00:00 - CONCLUSION: Aspiration occurred with thin liquids. Please refer to speech pathology report for full details. Eros Greer MD Brain MRI 12/31/16 0000 Signed Impressions: Service Date/Time: Saturday, December 31, 2016 10:15 - CONCLUSION: Subacute brainstem infarcts. Chronic ischemic changes and scattered supratentorial lacunar infarcts which appear old Eros Hassan MD Chest X-Ray 12/30/16 0000 Signed Impressions: Service Date/Time: Friday, December 30, 2016 16:49 - CONCLUSION: No acute disease. SPARKER AND PATCHER shunt is evident. Geo Roman MD FACR Head CT 12/29/16 0750 Signed Impressions: Service Date/Time: Thursday, December 29, 2016 08:15 - CONCLUSION: No evidence of acute hemorrhage, edema, mass or mass effect. Ventriculostomy catheter in good position. No concerning masses are identified. No interval change. Gopi Vaca MD Carotid Artery Ultrasound 12/29/16 0000 Signed Impressions: Service Date/Time: Thursday, December 29, 2016 15:23 - CONCLUSION: Minimal to mild bilateral carotid atherosclerosis. No hemodynamically significant narrowing. Eros Wilson MD Ossi,Laverne Mackenzie MD Dec 31, 2016 16:57
[2016-12-31] MEDS: ATORVASTATIN 40 MG TAB PO SCH (20:49)
[2017-01-01] VITALS (8 sets, daily range): BP systolic 117–188; BP diastolic 64–83; PULSE 77–108; RESP 16–18; TEMP 97.3–97.6; O2SAT 97–99
[2017-01-01] MEDS: hydrALAZINE HCL 50 MG TAB PO SCH ×3 (05:52→21:40)
[2017-01-01 07:16] LABS: HEMATOCRIT 40.1 % (39.0-51.0); MEAN CELL VOLUME 86.2 FL (80.0-100.0); MEAN CORPUSCULAR HEMOGLOBIN 28.9 PG (27.0-34.0); MEAN CORPUSCULAR HGB CONC 33.5 % (32.0-36.0); PLATELET COUNT 214 TH/MM3 (150-450); RED BLOOD COUNT 4.65 MIL/MM3 (4.50-5.90); RED CELL DISTRIBUTION WIDTH 15.1 % (11.6-17.2); REVIEW FLAG FINAL; WHITE BLOOD COUNT 7.3 TH/MM3 (4.0-11.0)
[2017-01-01 07:43] LABS: BICARBONATE 21.2 MEQ/L (21.0-32.0); POTASSIUM 4.5 MEQ/L (3.5-5.1)
[2017-01-01] MEDS: INSULIN ASPART SUPPLEMENTAL SCALE SQ SCH ×4 (08:00→21:40)
[2017-01-01] MEDS: ASPIRIN 325 MG TAB PO SCH (09:15)
[2017-01-01] MEDS: SODIUM CHLORIDE FLUSH BID IV FLUSH SCH ×2 (09:15→21:40)
--- NOTE | 2017-01-01 09:18 | HHI.PR ---
Review/Management Diagnosis 1. Acute/subacute ischemic stroke, left pontine lacune 2.. 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 Hypertensive urgency. 4. Subarachnoid hemorrhage in 2015, status post JACKERMAN shunt. 5. Coronary artery disease. Plan 1. Neuro checks q. one hourly. 2. Aspirin 325 mg daily. 3. BP, goal 130-135/75-80. 4. Patient needs rehab 5. DVT prophylaxis. 6. SCD prophylaxis. 7. PT/OT recommendations are appreciated 8. 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 Diagnosis/Plan: Subjective Subjective Comments No new complaint Seen while eating breakfast Reported by RN that patient was weaker on the left LE, with low BP I instructed to do MRI brain, and BP between 130-135/75-80 A follow up MRI brain with no new acute abnormality Active Medications Current Medications Medications (Trade) Dose Ordered Sig/Radha Route Start Time Stop Time Status Last Admin (Aspirin) 325 mg DAILY PO 12/30/16 09:00 01/01/17 09:15 (NovoLOG SUPPLEMENTAL SCALE) 1 ACHS SQ 12/29/16 12:00 (D50w (Vial) Inj) 50 ml UNSCH PRN IV PUSH 12/29/16 11:00 (Glucagon Inj) 1 mg UNSCH PRN OTHER 12/29/16 11:00 (Trandate Inj) 10 mg Q2H PRN IV PUSH 12/29/16 12:45 (NS Flush) 2 ml BID IV FLUSH 12/30/16 09:00 01/01/17 09:15 (NS Flush) 2 ml UNSCH PRN IV FLUSH 12/30/16 00:15 (Norvasc) 10 mg DAILY PO 12/30/16 09:00 01/01/17 09:15 (Apresoline) 50 mg Q8HR PO 12/30/16 14:00 01/01/17 05:52 (Lipitor) 80 mg HS PO 12/30/16 21:00 12/31/16 20:49 Allergies Allergies Coded Allergies lisinopril (Unverified Allergy, Severe, Angioedema, 12/29/16) Review of Systems All other ROS: ROS reviewed as documented in chart Exam I&O / VS Vital Signs Date Time Temp Pulse Resp B/P (MAP) Pulse Ox O2 Delivery O2 Flow Rate FiO2 01/01/17 07:59 97.6 84 16 177/83 (114) 98 01/01/17 04:26 97.6 87 18 188/82 (117) 98 12/31/16 23:56 97.8 80 18 169/81 (110) 98 12/31/16 20:22 97.7 76 21 190/87 (121) 99 12/31/16 16:35 97.2 83 18 191/91 (124) 99 12/31/16 12:04 97.8 94 18 167/79 (108) 97 12/31/16 11:51 83 12/31/16 09:28 96 Nasal Cannula 2.00 General: No acute distress Exam Comments GENERAL: Awake, alert, pleasant, slurred speech . HEENT: Atraumatic, normocephalic. JACKERMAN shunt through the scalp visible and palpable through the scalp. Intact hearing. Intact vision. CARDIOVASCULAR: Regular rate and rhythm. RESPIRATORY: Clear to auscultation. No wheezes. GASTROINTESTINAL: Soft abdomen. No tenderness. EXTREMITIES: No cyanosis or edema. NEUROLOGIC: Awake, alert, oriented to time, person and place. Slurred speech, chronic. Mild left facial palsy, chronic with pyramidal weakness of the left upper and lower extremity/chronic spastic, and pyramidal weakness of right UE&LE /normal tone. No nystagmus. No diplopia. No ptosis. Intact sensation bilateral symmetrical throughout. PSYCHIATRIC: Appropriate mood and behavior. Objective Radiology Results Last 72 hours Impressions Brain MRI 01/01/17 0000 Signed Impressions: Service Date/Time: Sunday, January 01, 2017 15:47 - CONCLUSION: No acute intracranial abnormality. Chronic white matter changes. Pansinusitis. Eros Wilson MD Modified Barium Swallow 12/31/16 0000 Signed Impressions: Service Date/Time: Saturday, December 31, 2016 00:00 - CONCLUSION: Aspiration occurred with thin liquids. Please refer to speech pathology report for full details. Eros Greer MD Brain MRI 12/31/16 0000 Signed Impressions: Service Date/Time: Saturday, December 31, 2016 10:15 - CONCLUSION: Subacute brainstem infarcts. Chronic ischemic changes and scattered supratentorial lacunar infarcts which appear old Eros Hassan MD Chest X-Ray 12/30/16 0000 Signed Impressions: Service Date/Time: Friday, December 30, 2016 16:49 - CONCLUSION: No acute disease. JACKERMAN shunt is evident. Geo Roman MD FACR Micro and Labs Laboratory Tests Test 01/01/17 06:59 White Blood Count 7.3 Red Blood Count 4.65 Hemoglobin 13.4 Hematocrit 40.1 Mean Corpuscular Volume 86.2 Mean Corpuscular Hemoglobin 28.9 Mean Corpuscular Hemoglobin Concent 33.5 Red Cell Distribution Width 15.1 Platelet Count 214 Mean Platelet Volume 8.8 Blood Urea Nitrogen 43 Creatinine 2.02 Random Glucose 94 Calcium Level 9.2 Sodium Level 142 Potassium Level 4.5 Chloride Level 112 Carbon Dioxide Level 21.2 Anion Gap 9 Estimat Glomerular Filtration Rate 34 Laverne Sierra MD Jan 01, 2017 09:18
--- NOTE | 2017-01-01 10:45 | HHI.PR ---
Subjective Remarks f/u for CVA Patient seen after do physical therapy. Physical therapist stated that he is doing a lot better. He requires minimal assist with a walker. Patient feels like he's getting better too. He continues have dysarthria. He has no other complaints. No new neurological symptoms. Objective Vitals Vital Signs Date Time Temp Pulse Resp B/P (MAP) Pulse Ox O2 Delivery O2 Flow Rate FiO2 01/01/17 07:59 97.6 84 16 177/83 (114) 98 01/01/17 04:26 97.6 87 18 188/82 (117) 98 12/31/16 23:56 97.8 80 18 169/81 (110) 98 12/31/16 20:22 97.7 76 21 190/87 (121) 99 12/31/16 16:35 97.2 83 18 191/91 (124) 99 12/31/16 12:04 97.8 94 18 167/79 (108) 97 12/31/16 11:51 83 I/O 12/31/16 12/31/16 12/31/16 01/01/17 01/01/17 01/01/17 07:00 15:00 23:00 07:00 15:00 23:00 Intake Total 120 ml 240 ml 120 ml Output Total 200 ml 300 ml 250 ml 150 ml Balance -80 ml -60 ml -130 ml -150 ml Intake Oral 120 ml 240 ml 120 ml Output Urine Total 200 ml 300 ml 250 ml 150 ml # Voids 2 # Bowel Movements 0 0 Result Diagram: 01/01/17 0659 01/01/17 0659 Objective Remarks GENERAL: Well-nourished, well-developed sitting in chair. SKIN: Warm and dry. HEAD: Normocephalic. EYES: No scleral icterus. No injection or drainage. NECK: Supple, trachea midline. No JVD or lymphadenopathy. Tracheostomy scar. CARDIOVASCULAR: Regular rate and rhythm without murmurs, gallops, or rubs. RESPIRATORY: Breath sounds equal bilaterally. No accessory muscle use. GASTROINTESTINAL: Abdomen soft, non-tender, nondistended. EXTREMITIES: No cyanosis, or edema. NEUROLOGICAL: Awake, alert, and oriented x 3. Speech dysarthric. 5 out of 5 bilateral upper extremity strength. Right lower extremity strength 5 out of 5. Slitter And Rewinder strength equal b/l. Face symmetric. Medications and IVs Current Medications Sodium Chloride (NS Flush) 2 ml UNSCH PRN IVF FLUSH AFTER USING IV ACCESS; Start 12/29/16 at 08:00; Stop 12/29/16 at 11:33; Status DC Labetalol HCl (Trandate Inj) 20 mg ONCE ONCE IV PUSH Last administered on 12/29 08:11; Start 12/29/16 at 08:00; Stop 12/29/16 at 08:01; Status DC Aspirin (Aspirin Supp) 300 mg ONCE ONCE RECTAL Last administered on 12/29/16 09:59; Start 12/29/16 at 09:45; Stop 12/29/16 at 09:46; Status DC IV Flush (NS Flush) 2 ml BID IV FLUSH ; Start 12/29/16 at 21:00; Stop 12/30/16 at 00:13; Status DC IV Flush (NS Flush) 2 ml UNSCH PRN IV FLUSH FLUSH AFTER USING IV ACCESS; Start 12/29/16 at 11:00; Stop 12/30/16 at 00:13; Status DC Sodium Chloride 1,000 ml @ 70 mls/hr [id number] IV ; Start 12/29/16 at 10:56; Stop 12/29/16 at 13:20; Status DC Aspirin (Aspirin) 325 mg DAILY PO Last administered on 01/01/17 09:15; Start 12/30/16 at 09:00 Atorvastatin Calcium (Lipitor) 80 mg HS PO Last administered on 12/29/16 19:43 ; Start 12/29/16 at 21:00; Stop 12/30/16 at 19:52; Status DC Insulin Aspart (NovoLOG SUPPLEMENTAL SCALE) 1 ACHS SQ ; Start 12/29/16 at 12:00 Dextrose (D50w (Vial) Inj) 50 ml UNSCH PRN IV PUSH HYPOGLYCEMIA-SEE COMMENTS; Start 12/29/16 at 11:00 Glucagon (Glucagon Inj) 1 mg UNSCH PRN OTHER HYPOGLYCEMIA-SEE COMMENTS; Start 12/29/16 at 11:00 Clonidine (Catapres) 0.1 mg Q6H PRN PO SBP>200 Last administered on 12/29/16 11:46; Start 12/29/16 at 11:00; Stop 12/29/16 at 12:46; Status DC Labetalol HCl (Trandate Inj) 10 mg Q2H PRN IV PUSH For SBP > 220 or DBP > 120; Start 12/29/16 at 12:45 Influenza Virus Vaccine (Flu (Quadrivalent) Vaccine Inj) 0.5 ml ONCE ONCE IM Last administered on 12/30/16 08:50; Start 12/30/16 at 10:00; Stop 12/30/16 at 10:01; Status DC Sodium Chloride (NS Flush) 2 ml BID IV FLUSH Last administered on 01/01/17 09: 15; Start 12/30/16 at 09:00 Sodium Chloride (NS Flush) 2 ml UNSCH PRN IV FLUSH FLUSH AFTER USING IV ACCESS ; Start 12/30/16 at 00:15 Amlodipine Besylate (Norvasc) 10 mg DAILY PO Last administered on 01/01/17 09: 15; Start 12/30/16 at 09:00 Hydralazine HCl (Apresoline) 50 mg Q8HR PO Last administered on 01/01/17 05:52 ; Start 12/30/16 at 14:00 Atorvastatin Calcium (Lipitor) 80 mg HS PO Last administered on 12/31/16 20:49 ; Start 12/30/16 at 21:00 A/P Problem List: (1) Ischemic cerebrovascular accident (CVA) ICD Code: I63.9 - Cerebral infarction, unspecified Status: Acute (2) Accelerated hypertension ICD Code: I10 - Essential (primary) hypertension Status: Acute Assessment and Plan Acute CVA, patient has history of right MCA stroke in 2016 - the patient presented with some left-sided weakness and dysarthria that has improved. -Head CT brain negative. - Brain MRI subacute brainstem infarct. chronic ischemic changes and scattered supratentorial, carotid ultrasound showed mild atherosclerosis. -Echo showed mild concentric left ventricular hypertrophy, left ventricular systolic function is low normal with an estimated ejection fraction in the range of 50%, consistent with impaired left ventricular relaxtion (grade 1 diastolic dysfunction). [id number] mitral valve regurgitation. -Patient had a barium swallow study which showed that he is aspirating on thin liquids. Recommendation per speech therapist. -PT and OT consulted. -Per neurologist blood pressures to be between 1:30 to 135/20 05/20/80. -She would aspirin 325. -Chronic kidney disease stage III. -stable. Accelerated hypertension -Post transition to oral medication. Continue with IV antihypertensive medication. 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 Coronary artery disease with left heart catheterization in 2007 and stent to the LAD - start aspirin. Check lipid profile. History of cocaine use greater than 5 years ago -urine drug screen negative. -DVT prophylaxis with SCDs. Discharge Planning Once patient is medically stable to be discharged to SNF. Cristin Rice MD Jan 01, 2017 10:45
[2017-01-01] MEDS: cloNIDine HCL 0.1 MG TAB PO SCH ×2 (11:30→21:39)
--- NOTE | 2017-01-01 17:05 | RADRPT ---
EXAM DATE/TIME: 01/01/2017 15:47 [facility] COMPARISON: MRI BRAIN W/O CONTRAST, November 03, 2015, 11:08. INDICATIONS : CVA. MEDICAL HISTORY : Hypertension. SURGICAL HISTORY : NEONATAL SURGEON shunt. ENCOUNTER: Initial ACUITY: 1 day PAIN SCORE: 0/10 LOCATION: cranial TECHNIQUE: Multiplanar, multisequence MRI of the brain was performed without contrast. FINDINGS: CEREBRUM: The ventricles are normal for age. No evidence of midline shift, mass lesion, hemorrhage or acute in farction. No extraaxial fluid collections are seen. The pituitary gland and suprasellar cistern are normal in configuration. WHITE MATTER: Extensive chronic flair signal abnormality again seen in the periventricular white matter. POSTERIOR FOSSA: The cerebellum and brainstem are intact. The 4th ventricle is midline. The cerebellopontine angle is unremarkable. The cerebellar tonsils are normal in position. DIFFUSION IMAGING: No focal areas of restricted diffusion are seen. No evidence of acute infarction. EXTRACRANIAL: Mucoperiosteal thickening of the visualized sinuses, especially right ethmoid and right maxillary. CONCLUSION: No acute intracranial abnormality. Chronic white matter changes. Pansinusitis. Eros Wilson MD on January 01, 2017 at 16:56 Board Certified Radiologist. This report was verified electronically.
[2017-01-01] MEDS: ATORVASTATIN 40 MG TAB PO SCH (21:39)
[2017-01-02] VITALS (10 sets, daily range): BP systolic 124–163; BP diastolic 64–80; PULSE 69–87; RESP 16–19; TEMP 97.3–98.4; O2SAT 96–98
[2017-01-02] MEDS: hydrALAZINE HCL 50 MG TAB PO SCH ×3 (06:07→21:57)
[2017-01-02] MEDS: INSULIN ASPART SUPPLEMENTAL SCALE SQ SCH ×4 (08:36→20:50)
[2017-01-02] MEDS: cloNIDine HCL 0.1 MG TAB PO SCH (09:28)
[2017-01-02] MEDS: ASPIRIN 325 MG TAB PO SCH (09:28)
[2017-01-02] MEDS: SODIUM CHLORIDE FLUSH BID IV FLUSH SCH ×2 (09:28→20:49)
--- NOTE | 2017-01-02 09:52 | HHI.PR ---
Subjective Remarks Follow-up for CVA Patient had episode yesterday where he fell right lower extremity tingling and increased weakness. Dr. Lorenzo was notified in which a repeat MRI was done. MRI was stable. Per Dr. Lorenzo may be due to blood pressure being too low since at that time his systolic blood pressure was in the 110s. Otherwise patient denies any worsening the symptoms. But he stated that he continues to have tingling sensation in the weakness. Objective Vitals Vital Signs Date Time Temp Pulse Resp B/P (MAP) Pulse Ox O2 Delivery O2 Flow Rate FiO2 01/02/17 07:30 97.7 79 16 134/64 (87) 96 01/02/17 04:00 97.3 78 19 146/77 (100) 97 01/02/17 02:54 73 01/02/17 00:28 98.4 71 18 157/76 (103) 97 01/01/17 20:00 97.4 81 18 150/75 (100) 97 01/01/17 16:31 77 16 146/71 (96) 99 01/01/17 15:10 97.5 82 16 136/76 (96) 98 01/01/17 13:50 129/64 (85) 117/73 (88) 01/01/17 12:00 97.3 79 16 155/78 (103) 97 01/01/17 10:48 108 I/O 01/01/17 01/01/17 01/01/17 01/02/17 01/02/17 01/02/17 07:00 15:00 23:00 07:00 15:00 23:00 Intake Total 480 ml Output Total 150 ml 450 ml 250 ml Balance -150 ml 30 ml -250 ml Intake Oral 480 ml Output Urine Total 150 ml 450 ml 250 ml # Bowel Movements 0 0 0 Result Diagram: 01/01/1765801/01/17658 Objective Remarks GENERAL: Well-nourished, well-developed sitting in chair. SKIN: Warm and dry. HEAD: Normocephalic. EYES: No scleral icterus. No injection or drainage. NECK: Supple, trachea midline. No JVD or lymphadenopathy. Tracheostomy scar. CARDIOVASCULAR: Regular rate and rhythm without murmurs, gallops, or rubs. RESPIRATORY: Breath sounds equal bilaterally. No accessory muscle use. GASTROINTESTINAL: Abdomen soft, non-tender, nondistended. EXTREMITIES: No cyanosis, or edema. NEUROLOGICAL: Awake, alert, and oriented x 3. Speech dysarthric. 5 out of 5 left-sided strength. 5 out of 5 upper extremity strength of the right side. 4 out of 5 right lower extremity strength. Energy Sales Consultant strength equal b/l. Face symmetric. Medications and IVs Current Medications Sodium Chloride (NS Flush) 2 ml UNSCH PRN IVF FLUSH AFTER USING IV ACCESS; Start 12/29/16 at 08:00; Stop 12/29/16 at 11:33; Status DC Labetalol HCl (Trandate Inj) 20 mg ONCE ONCE IV PUSH Last administered on 12/29 08:11; Start 12/29/16 at 08:00; Stop 12/29/16 at 08:01; Status DC Aspirin (Aspirin Supp) 300 mg ONCE ONCE RECTAL Last administered on 12/29/16 09:59; Start 12/29/16 at 09:45; Stop 12/29/16 at 09:46; Status DC IV Flush (NS Flush) 2 ml BID IV FLUSH ; Start 12/29/16 at 21:00; Stop 12/30/16 at 00:13; Status DC IV Flush (NS Flush) 2 ml UNSCH PRN IV FLUSH FLUSH AFTER USING IV ACCESS; Start 12/29/16 at 11:00; Stop 12/30/16 at 00:13; Status DC Sodium Chloride 1,000 ml @ 70 mls/hr [id number] IV ; Start 12/29/16 at 10:56; Stop 12/29/16 at 13:20; Status DC Aspirin (Aspirin) 325 mg DAILY PO Last administered on 01/02/17 09:28; Start 12/30/16 at 09:00 Atorvastatin Calcium (Lipitor) 80 mg HS PO Last administered on 12/29/16 19:43 ; Start 12/29/16 at 21:00; Stop 12/30/16 at 19:52; Status DC Insulin Aspart (NovoLOG SUPPLEMENTAL SCALE) 1 ACHS SQ ; Start 12/29/16 at 12:00 Dextrose (D50w (Vial) Inj) 50 ml UNSCH PRN IV PUSH HYPOGLYCEMIA-SEE COMMENTS; Start 12/29/16 at 11:00 Glucagon (Glucagon Inj) 1 mg UNSCH PRN OTHER HYPOGLYCEMIA-SEE COMMENTS; Start 12/29/16 at 11:00 Clonidine (Catapres) 0.1 mg Q6H PRN PO SBP>200 Last administered on 12/29/16 11:46; Start 12/29/16 at 11:00; Stop 12/29/16 at 12:46; Status DC Labetalol HCl (Trandate Inj) 10 mg Q2H PRN IV PUSH For SBP > 220 or DBP > 120; Start 12/29/16 at 12:45 Influenza Virus Vaccine (Flu (Quadrivalent) Vaccine Inj) 0.5 ml ONCE ONCE IM Last administered on 12/30/16 08:50; Start 12/30/16 at 10:00; Stop 12/30/16 at 10:01; Status DC Sodium Chloride (NS Flush) 2 ml BID IV FLUSH Last administered on 01/02/17 09: 28; Start 12/30/16 at 09:00 Sodium Chloride (NS Flush) 2 ml UNSCH PRN IV FLUSH FLUSH AFTER USING IV ACCESS ; Start 12/30/16 at 00:15 Amlodipine Besylate (Norvasc) 10 mg DAILY PO Last administered on 01/02/17 09: 28; Start 12/30/16 at 09:00 Hydralazine HCl (Apresoline) 50 mg Q8HR PO Last administered on 01/02/17 06:07 ; Start 12/30/16 at 14:00 Atorvastatin Calcium (Lipitor) 80 mg HS PO Last administered on 01/01/17 21:39 ; Start 12/30/16 at 21:00 Clonidine (Catapres) 0.1 mg Q12HR PO Last administered on 01/01/17 21:39; Start 01/01/17 at 11:30 A/P Problem List: (1) Ischemic cerebrovascular accident (CVA) ICD Code: I63.9 - Cerebral infarction, unspecified Status: Acute (2) Accelerated hypertension ICD Code: I10 - Essential (primary) hypertension Status: Acute Assessment and Plan Acute CVA, patient has history of right MCA stroke in 2016 - the patient presented with some left-sided weakness and dysarthria that has improved. -Head CT brain negative. - Brain MRI subacute brainstem infarct. chronic ischemic changes and scattered supratentorial, carotid ultrasound showed mild atherosclerosis. Due to increased symptoms MRI was repeated in which it was stable. -Echo showed mild concentric left ventricular hypertrophy, left ventricular systolic function is low normal with an estimated ejection fraction in the range of 50%, consistent with impaired left ventricular relaxtion (grade 1 diastolic dysfunction). [id number] mitral valve regurgitation. -Patient had a barium swallow study which showed that he is aspirating on thin liquids. Recommend mechanical soft honey thick and NO STRAWS. NO HARD BREAD OR RICE. -PT and OT consulted. -Per neurologist blood pressures to be between 130-135 and should not be low or especially with increased symptoms. -continue aspirin 325. -Chronic kidney disease stage III. -stable. Accelerated hypertension -Post transition to oral medication. Continue with IV antihypertensive medication. 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 Coronary artery disease with left heart catheterization in 2007 and stent to the LAD - Continue current regimen. History of cocaine use greater than 5 years ago -urine drug screen negative. -DVT prophylaxis with SCDs. Discharge Planning If cleared by neurologist patient is medically stable for discharge to SNF. Cristin Rice MD Jan 02, 2017 09:52
[2017-01-02 10:11] LABS: HEMATOCRIT 40.3 % (39.0-51.0); MEAN CELL VOLUME 86.9 FL (80.0-100.0); MEAN CORPUSCULAR HEMOGLOBIN 28.7 PG (27.0-34.0); PLATELET COUNT 217 TH/MM3 (150-450); RED BLOOD COUNT 4.64 MIL/MM3 (4.50-5.90); RED CELL DISTRIBUTION WIDTH 15.3 % (11.6-17.2); REVIEW FLAG FINAL; WHITE BLOOD COUNT 7.8 TH/MM3 (4.0-11.0)
[2017-01-02 10:28] LABS: BICARBONATE 22.4 MEQ/L (21.0-32.0); POTASSIUM 4.5 MEQ/L (3.5-5.1)
[2017-01-02] MEDS ORDERED: SODIUM CHLORID 0.9% 500 ML INJ 500 ML IV ONE (14:15)
[2017-01-02] MEDS: ATORVASTATIN 40 MG TAB PO SCH (20:49)
[2017-01-02] MEDS: SODIUM CHLOR 0.9% 1000 ML INJ 1,000 ML IV SCH ×2 (20:50→23:31)
[2017-01-03] VITALS (8 sets, daily range): BP systolic 122–164; BP diastolic 64–79; PULSE 66–79; RESP 18; TEMP 97.3–98.5; O2SAT 95–98
[2017-01-03] MEDS: hydrALAZINE HCL 50 MG TAB PO SCH ×3 (06:18→20:27)
[2017-01-03] MEDS: INSULIN ASPART SUPPLEMENTAL SCALE SQ SCH ×4 (07:53→20:01)
[2017-01-03] MEDS: SODIUM CHLORIDE FLUSH BID IV FLUSH SCH ×2 (09:00→20:27)
[2017-01-03] MEDS: ASPIRIN 325 MG TAB PO SCH (09:29)
[2017-01-03] MEDS: SODIUM CHLOR 0.9% 1000 ML INJ 1,000 ML IV SCH ×2 (10:15→15:13)
--- NOTE | 2017-01-03 11:24 | HHI.PR ---
Subjective Remarks Follow-up for CVA Patient complaining of a gout flareup. When I examined patient's lower extremity I did not see any gout flareups but he stated that the pain is similar to his gout flareup. He continues to have dysarthria but follows commands. Denied any new focal neurological symptoms. Otherwise no other complaints. Patient has decreased oral intake. He stated that he does not like the water that is given to him. Objective Vitals Vital Signs Date Time Temp Pulse Resp B/P (MAP) Pulse Ox O2 Delivery O2 Flow Rate FiO2 01/03/17 07:33 98.4 72 18 122/66 (84) 95 01/03/17 04:54 98.1 71 18 132/74 (93) 96 01/03/17 00:20 73 01/03/17 00:00 98.1 70 18 138/74 (95) 97 01/02/17 20:00 98.1 71 18 124/66 (85) 96 01/02/17 16:00 97.4 69 16 163/76 (105) 97 01/02/17 15:15 69 01/02/17 13:39 79 137/80 (99) I/O 01/02/17 01/02/17 01/02/17 01/03/17 01/03/17 01/03/17 07:00 15:00 23:00 07:00 15:00 23:00 Intake Total 740 ml 456 ml Output Total 250 ml 100 ml 300 ml 150 ml Balance -250 ml -100 ml 440 ml 306 ml Intake Oral 240 ml IV Total 500 ml 456 ml Output Urine Total 250 ml 100 ml 300 ml 150 ml # Bowel Movements 0 0 0 Result Diagram: 01/02/1795201/02/17952 Objective Remarks GENERAL: Well-nourished, well-developed sitting in chair. SKIN: Warm and dry. HEAD: Normocephalic. EYES: No scleral icterus. No injection or drainage. NECK: Supple, trachea midline. No JVD or lymphadenopathy. Tracheostomy scar. CARDIOVASCULAR: Regular rate and rhythm without murmurs, gallops, or rubs. RESPIRATORY: Breath sounds equal bilaterally. No accessory muscle use. GASTROINTESTINAL: Abdomen soft, non-tender, nondistended. EXTREMITIES: No cyanosis, or edema. NEUROLOGICAL: Awake, alert, and oriented x 3. Speech dysarthric. 5 out of 5 left-sided strength. 5 out of 5 upper extremity strength of the right side. 4 out of 5 right lower extremity strength. Ice Cream Chef strength equal b/l. Face symmetric. Bilateral feet no erythema or swelling noted in any joints. No tenderness to palpation the joints. Medications and IVs Current Medications Sodium Chloride (NS Flush) 2 ml UNSCH PRN IVF FLUSH AFTER USING IV ACCESS; Start 12/29/16 at 08:00; Stop 12/29/16 at 11:33; Status DC Labetalol HCl (Trandate Inj) 20 mg ONCE ONCE IV PUSH Last administered on 12/29 08:11; Start 12/29/16 at 08:00; Stop 12/29/16 at 08:01; Status DC Aspirin (Aspirin Supp) 300 mg ONCE ONCE RECTAL Last administered on 12/29/16 09:59; Start 12/29/16 at 09:45; Stop 12/29/16 at 09:46; Status DC IV Flush (NS Flush) 2 ml BID IV FLUSH ; Start 12/29/16 at 21:00; Stop 12/30/16 at 00:13; Status DC IV Flush (NS Flush) 2 ml UNSCH PRN IV FLUSH FLUSH AFTER USING IV ACCESS; Start 12/29/16 at 11:00; Stop 12/30/16 at 00:13; Status DC Sodium Chloride 1,000 ml @ 70 mls/hr [id number] IV ; Start 12/29/16 at 10:56; Stop 12/29/16 at 13:20; Status DC Aspirin (Aspirin) 325 mg DAILY PO Last administered on 01/03/17 09:29; Start 12/30/16 at 09:00 Atorvastatin Calcium (Lipitor) 80 mg HS PO Last administered on 12/29/16 19:43 ; Start 12/29/16 at 21:00; Stop 12/30/16 at 19:52; Status DC Insulin Aspart (NovoLOG SUPPLEMENTAL SCALE) 1 ACHS SQ ; Start 12/29/16 at 12:00 Dextrose (D50w (Vial) Inj) 50 ml UNSCH PRN IV PUSH HYPOGLYCEMIA-SEE COMMENTS; Start 12/29/16 at 11:00 Glucagon (Glucagon Inj) 1 mg UNSCH PRN OTHER HYPOGLYCEMIA-SEE COMMENTS; Start 12/29/16 at 11:00 Clonidine (Catapres) 0.1 mg Q6H PRN PO SBP>200 Last administered on 12/29/16 11:46; Start 12/29/16 at 11:00; Stop 12/29/16 at 12:46; Status DC Labetalol HCl (Trandate Inj) 10 mg Q2H PRN IV PUSH For SBP > 220 or DBP > 120; Start 12/29/16 at 12:45 Influenza Virus Vaccine (Flu (Quadrivalent) Vaccine Inj) 0.5 ml ONCE ONCE IM Last administered on 12/30/16 08:50; Start 12/30/16 at 10:00; Stop 12/30/16 at 10:01; Status DC Sodium Chloride (NS Flush) 2 ml BID IV FLUSH Last administered on 01/02/17 09: 28; Start 12/30/16 at 09:00 Sodium Chloride (NS Flush) 2 ml UNSCH PRN IV FLUSH FLUSH AFTER USING IV ACCESS ; Start 12/30/16 at 00:15 Amlodipine Besylate (Norvasc) 10 mg DAILY PO Last administered on 01/03/17 09 :29; Start 12/30/16 at 09:00 Hydralazine HCl (Apresoline) 50 mg Q8HR PO Last administered on 01/03/17 06: 18; Start 12/30/16 at 14:00 Atorvastatin Calcium (Lipitor) 80 mg HS PO Last administered on 01/02/17 20:49 ; Start 12/30/16 at 21:00 Clonidine (Catapres) 0.1 mg Q12HR PO Last administered on 01/01/17 21:39; Start 01/01/17 at 11:30; Stop 01/02/17 at 09:48; Status DC Sodium Chloride 1,000 ml @ 100 mls/hr Q10H IV Last administered on 01/02/17 20:50; Start 01/02/17 at 14:15 Sodium Chloride 500 ml @ 500 mls/hr BOLUS ONCE IV Last administered on 14:26; Start 01/02/17 at 14:15; Stop 01/02/17 at 15:14; Status DC A/P Problem List: (1) Ischemic cerebrovascular accident (CVA) ICD Code: I63.9 - Cerebral infarction, unspecified Status: Acute (2) Accelerated hypertension ICD Code: I10 - Essential (primary) hypertension Status: Acute Assessment and Plan Acute CVA, patient has history of right MCA stroke in 2016 - the patient presented with some left-sided weakness and dysarthria that has improved. -Head CT brain negative. - Brain MRI subacute brainstem infarct. chronic ischemic changes and scattered supratentorial, carotid ultrasound showed mild atherosclerosis. Due to increased symptoms MRI was repeated in which it was stable. -Echo showed mild concentric left ventricular hypertrophy, left ventricular systolic function is low normal with an estimated ejection fraction in the range of 50%, consistent with impaired left ventricular relaxtion (grade 1 diastolic dysfunction). [id number] mitral valve regurgitation. -Patient had a barium swallow study which showed that he is aspirating on thin liquids. Recommend mechanical soft honey thick and NO STRAWS. NO HARD BREAD OR RICE. -PT and OT consulted. -Per neurologist blood pressures to be between 130-135 and should not be lower especially with increased symptoms. -continue aspirin 325. Acute on Chronic kidney disease stage III. -Creatinine is worsening. Patient is not taking any oral intake due to texture and taste. I encouraged him to increase oral intake. He agrees. In the meantime will need to continue with IV fluids until oral intake improves and creatinine improves. -Continue to monitor creatinine. Avoid nephrotoxins. -Strict ins and outs. Accelerated hypertension -Controlled with amlodipine and hydralazine. Due to worsening kidney function I would avoid DARVIN or ARBS. 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 Coronary artery disease with left heart catheterization in 2007 and stent to the LAD - Continue current regimen. History of cocaine use greater than 5 years ago -urine drug screen negative. ? gout -Patient complaining of pain that he usually gets from gout. On clinical exam I do not see any flareup of gout. -Will try a low dose of prednisone to see if this helps with pain. -DVT prophylaxis with SCDs. Discharge Planning Once kidney function improves and off IVFs patient can be discharged to SNF. Cristin Rice MD Jan 03, 2017 11:24
[2017-01-03] MEDS: predniSONE 20 MG TAB PO SCH (12:13)
[2017-01-03 12:25] LABS: BICARBONATE 22.6 MEQ/L (21.0-32.0); POTASSIUM 4.3 MEQ/L (3.5-5.1)
--- NOTE | 2017-01-03 18:29 | HM ---
Date Performed: 01/01/2017 Time Performed: 17:38:00 HOOKUP DATE: 01/01/17 05:38:00 PM Wed ANALYSIS START TIME: 01/01/2017 5:43:00 PM ANALYSIS END TIME: 01/02/2017 5:47:00 PM PATIENT AGE: 56 PATIENT HEIGHT: 67 PATIENT WEIGHT: 149 DRUG LIST: room # 1515 PATIENT DIAGNOSIS: ACUTE ISCHEMIC CVA HYPERTENSIVE URGENCY TEST NARRATIVE: The patient's average heart rate was 77 BPM. No episodes of tachycardia wer e noted. No episodes of bradycardia were noted. No pauses exceeding 2.0 seconds were noted. 993 ventricular ectopics, which represented 1% of the total beat count, were noted. The highest vent ricular ectopic frequency occurred from 09:00 PM to 10:00 PM Wed. During this time 60 VE(s) occurred . Ventricular ectopics were observed as 967 isolated beat(s) and as 13 couplet(s). No runs were not ed. 66 supraventricular ectopics, which represented < 1% of the total beat count, were noted. Th e highest supraventricular ectopic frequency occurred from 11:00 AM to 12:00 PM Marilou. During this terri e 49 SVE(s) occurred. In channel 1, a single episode of ST depression (defined as -1.0 mm or more ) occurred at 10:46:52 AM Marilou with a maximum depression of -2.1 mm. No episodes of ST depression (de fined as -1.0 mm or more) were noted in channel 2. No episodes of ST depression (defined as -1.0 mm or more) were noted in channel 3. NO DIARY MAINTAINED TEST INTERPRETATION: Sinus . Reccurent PACs Multiple PVCs no pause, no ventricular tachycardia, no significant supraventricular tachycardia observed. There is no entry in the diary. Signed by : Siena Reagan
[2017-01-03] MEDS: ATORVASTATIN 40 MG TAB PO SCH (20:27)
[2017-01-04] VITALS (9 sets, daily range): BP systolic 134–174; BP diastolic 67–77; PULSE 59–76; RESP 16–20; TEMP 97–98.3; O2SAT 93–99
[2017-01-04] MEDS: hydrALAZINE HCL 50 MG TAB PO SCH ×3 (05:25→21:28)
[2017-01-04] MEDS: SODIUM CHLOR 0.9% 1000 ML INJ 1,000 ML IV SCH (06:15)
[2017-01-04] MEDS: INSULIN ASPART SUPPLEMENTAL SCALE SQ SCH ×4 (07:39→21:32)
[2017-01-04 07:54] LABS: BICARBONATE 21.4 MEQ/L (21.0-32.0); POTASSIUM 4.1 MEQ/L (3.5-5.1)
[2017-01-04] MEDS: SODIUM CHLORIDE FLUSH BID IV FLUSH SCH ×2 (08:13→21:00)
[2017-01-04] MEDS: predniSONE 20 MG TAB PO SCH (08:14)
[2017-01-04] MEDS: ASPIRIN 325 MG TAB PO SCH (08:14)
--- NOTE | 2017-01-04 10:25 | HHI.PR ---
Subjective Remarks Very unsteady on his feet. No fever ro chills. No new motor or sensory deficit. Denies chest pain or sob. Objective Vitals Vital Signs Date Time Temp Pulse Resp B/P (MAP) Pulse Ox O2 Delivery O2 Flow Rate FiO2 01/04/17 08:15 97.3 76 18 174/76 (108) 99 01/04/17 08:00 59 01/04/17 04:00 97.0 63 20 153/67 (95) 95 01/04/17 00:00 98.0 70 18 134/71 (92) 98 01/03/17 20:00 97.3 74 18 131/64 (86) 97 01/03/17 15:07 97.6 66 18 164/77 (106) 98 01/03/17 14:18 74 01/03/17 12:27 98.5 79 18 136/79 (98) 95 I/O 01/03/17 01/03/17 01/03/17 01/04/17 01/04/17 01/04/17 07:00 15:00 23:00 07:00 15:00 23:00 Intake Total 456 ml Output Total 150 ml 652 ml Balance 306 ml -652 ml IV Total 456 ml Output Urine Total 150 ml 650 ml Stool Total 2 ml # Bowel Movements 0 Result Diagram: 01/02/17 0953 01/04/17 0611 Imaging Last Impressions Brain MRI 01/01/17 0000 Signed Impressions: Service Date/Time: Sunday, January 01, 2017 15:47 - CONCLUSION: No acute intracranial abnormality. Chronic white matter changes. Pansinusitis. Eros Wilson MD Modified Barium Swallow 12/31/16 0000 Signed Impressions: Service Date/Time: Saturday, December 31, 2016 00:00 - CONCLUSION: Aspiration occurred with thin liquids. Please refer to speech pathology report for full details. Eros Greer MD Chest X-Ray 12/30/16 0000 Signed Impressions: Service Date/Time: Friday, December 30, 2016 16:49 - CONCLUSION: No acute disease. DYE ROOM HELPER shunt is evident. Geo Roman MD FACR Head CT 12/29/16 0750 Signed Impressions: Service Date/Time: Thursday, December 29, 2016 08:15 - CONCLUSION: No evidence of acute hemorrhage, edema, mass or mass effect. Ventriculostomy catheter in good position. No concerning masses are identified. No interval change. Gopi Vaca MD Carotid Artery Ultrasound 12/29/16 0000 Signed Impressions: Service Date/Time: Thursday, December 29, 2016 15:23 - CONCLUSION: Minimal to mild bilateral carotid atherosclerosis. No hemodynamically significant narrowing. Eros Wilson MD Objective Remarks GENERAL: Well-nourished, well-developed sitting in chair. NECK: Supple, trachea midline. No JVD or lymphadenopathy. Tracheostomy scar. CARDIOVASCULAR: Regular rate and rhythm without murmurs, gallops, or rubs. RESPIRATORY: Breath sounds equal bilaterally. No accessory muscle use. GASTROINTESTINAL: Abdomen soft, non-tender, nondistended. EXTREMITIES: No cyanosis, or edema. NEUROLOGICAL: Awake, alert, and oriented x 3. Speech dysarthric. 5 out of 5 left-sided strength. 5 out of 5 upper extremity strength of the right side. 4 out of 5 right lower extremity strength. Cook Frozen Dessert strength equal b/l. Face symmetric. Bilateral feet no erythema or swelling noted in any joints. No tenderness to palpation the joints. A/P Problem List: (1) Ischemic cerebrovascular accident (CVA) ICD Code: I63.9 - Cerebral infarction, unspecified Status: Acute (2) Accelerated hypertension ICD Code: I10 - Essential (primary) hypertension Status: Acute Assessment and Plan Acute CVA, patient has history of right MCA stroke in 2016 - the patient presented with some left-sided weakness and dysarthria that has improved. -Head CT brain negative. - Brain MRI subacute brainstem infarct. chronic ischemic changes and scattered supratentorial, carotid ultrasound showed mild atherosclerosis. Due to increased symptoms MRI was repeated in which it was stable. -Echo showed mild concentric left ventricular hypertrophy, left ventricular systolic function is low normal with an estimated ejection fraction in the range of 50%, consistent with impaired left ventricular relaxation (grade 1 diastolic dysfunction). [id number] mitral valve regurgitation. -Patient had a barium swallow study which showed that he is aspirating on thin liquids. Recommend mechanical soft honey thick and NO STRAWS. NO HARD BREAD OR RICE. -PT and OT consulted. -Per neurologist blood pressures to be between 130-135 and should not be lower especially with increased symptoms. -continue aspirin 325. Acute on Chronic kidney disease stage III. -Creatinine is worsening. Patient is not taking any oral intake due to texture and taste. I encouraged him to increase oral intake. He agrees. In the meantime will need to continue with IV fluids until oral intake improves and creatinine improves. -Continue to monitor creatinine. Avoid nephrotoxins. -Strict ins and outs. Accelerated hypertension -Controlled with amlodipine and hydralazine. Due to worsening kidney function I would avoid DARVIN or ARBS. 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 Coronary artery disease with left heart catheterization in 2007 and stent to the LAD - Continue current regimen. History of cocaine use greater than 5 years ago -urine drug screen negative. ? gout -Patient complaining of pain that he usually gets from gout. On clinical exam I do not see any flareup of gout. -Will try a low dose of prednisone to see if this helps with pain. -DVT prophylaxis with SCDs. Discharge Planning Kidney function improving, DC IVFs patient can be discharged to SNF however discussed with CM, difficult DC. Patient to have PT daily 7/7 days until imprpved and deemed safe for DC by PT. Mandi Mays MD Jan 04, 2017 10:25
[2017-01-04] MEDS ORDERED: AMLO10 PO (10:31)
[2017-01-04] MEDS ORDERED: ATOR40TA16 PO (10:31)
[2017-01-04] MEDS ORDERED: ASA325 PO (10:31)
[2017-01-04] MEDS ORDERED: HYDR-3800 PO (10:31)
--- NOTE | 2017-01-04 10:32 | HHI.DS ---
Discharge Summary Admission Date Dec 29, 2016 at 09:41 Discharge Date: Jan 06, 2017 Admitting Diagnosis acute ischemic CVA,hypertensive urgency (1) Ischemic cerebrovascular accident (CVA) ICD Code: I63.9 - Cerebral infarction, unspecified Status: Acute (2) Accelerated hypertension ICD Code: I10 - Essential (primary) hypertension Status: Acute Procedures none Brief History - From Admission This is a pleasant 56 year-old male with past history of ischemic CVA , subarachnoid hemorrhage status post BAND EDGER shunt, hypertension, cocaine use, tobaccoism who presents to the ER today with slurred speech and some right- sided weakness beginning last night at about 2 AM. Patient waited until later in the morning to present to the ER. Patient currently states that his left leg feels numb and heavy. He states he currently does not have any weakness in the left arm. He does complain of difficulty speaking. The patient is supposed to be on blood pressure medication but does not take it. He does not take aspirin or a statin. The patient continues to smoke tobacco. The patient does have a history of cocaine use but denies any recent cocaine use over the past 5 years. Symptoms are severe. No palliative or provocative factors. In the emergency department a head CT was ordered which was negative for acute CVA or bleed, did show the BAND EDGER shunt in good position. Systolic blood pressure was 252 and the patient received IV labetalol. He received 300 mg rectal aspirin. Patient was admitted to the ICU for further care. Patient has passed a nursing bedside swallow evaluation. CBC/BMP: 01/02/17 0953 01/04/17 0611 Significant Findings Laboratory Tests Test 01/02/17 09:53 01/03/17 11:26 01/04/17 06:11 Blood Urea Nitrogen 53 MG/DL (7-18) 53 MG/DL (7-18) 48 MG/DL (7-18) Creatinine 2.49 MG/DL (0.60-1.30) 2.45 MG/DL (0.60-1.30) 1.85 MG/DL (0.60-1.30) Chloride Level 110 MEQ/L (98-107) 111 MEQ/L (98-107) 114 MEQ/L (98-107) Estimat Glomerular Filtration Rate 27 ML/MIN (>89) 28 ML/MIN (>89) 38 ML/MIN (>89) Random Glucose 109 MG/DL (74-106) Imaging Last Impressions Brain MRI 01/01/17 0000 Signed Impressions: Service Date/Time: Sunday, January 01, 2017 15:47 - CONCLUSION: No acute intracranial abnormality. Chronic white matter changes. Pansinusitis. Eros Wilson MD Modified Barium Swallow 12/31/16 0000 Signed Impressions: Service Date/Time: Saturday, December 31, 2016 00:00 - CONCLUSION: Aspiration occurred with thin liquids. Please refer to speech pathology report for full details. Eros Greer MD Chest X-Ray 12/30/16 0000 Signed Impressions: Service Date/Time: Friday, December 30, 2016 16:49 - CONCLUSION: No acute disease. BAND EDGER shunt is evident. Geo Roman MD FACR Head CT 12/29/16 0750 Signed Impressions: Service Date/Time: Thursday, December 29, 2016 08:15 - CONCLUSION: No evidence of acute hemorrhage, edema, mass or mass effect. Ventriculostomy catheter in good position. No concerning masses are identified. No interval change. Gopi Vaca MD Carotid Artery Ultrasound 12/29/16 0000 Signed Impressions: Service Date/Time: Thursday, December 29, 2016 15:23 - CONCLUSION: Minimal to mild bilateral carotid atherosclerosis. No hemodynamically significant narrowing. Eros Wilson MD PE at Discharge GENERAL: Well-nourished, well-developed sitting in chair. NECK: Supple, trachea midline. No JVD or lymphadenopathy. Tracheostomy scar. CARDIOVASCULAR: Regular rate and rhythm without murmurs, gallops, or rubs. RESPIRATORY: Breath sounds equal bilaterally. No accessory muscle use. GASTROINTESTINAL: Abdomen soft, non-tender, nondistended. EXTREMITIES: No cyanosis, or edema. NEUROLOGICAL: Awake, alert, and oriented x 3. Speech dysarthric. 5 out of 5 left-sided strength. 5 out of 5 upper extremity strength of the right side. 4 out of 5 right lower extremity strength. Draw Off Worker strength equal b/l. Face symmetric. Bilateral feet no erythema or swelling noted in any joints. No tenderness to palpation the joints. Hospital Course Acute CVA, patient has history of right MCA stroke in 2016 - the patient presented with some left-sided weakness and dysarthria that has improved. -Head CT brain negative. - Brain MRI subacute brainstem infarct. chronic ischemic changes and scattered supratentorial, carotid ultrasound showed mild atherosclerosis. Due to increased symptoms MRI was repeated in which it was stable. -Echo showed mild concentric left ventricular hypertrophy, left ventricular systolic function is low normal with an estimated ejection fraction in the range of 50%, consistent with impaired left ventricular relaxation (grade 1 diastolic dysfunction). [id number] mitral valve regurgitation. -Patient had a barium swallow study which showed that he is aspirating on thin liquids. Recommend mechanical soft honey thick and NO STRAWS. NO HARD BREAD OR RICE. -PT and OT consulted. -Per neurologist blood pressures to be between 130-135 and should not be lower especially with increased symptoms. -continue aspirin 325. Acute on Chronic kidney disease stage III. -Creatinine is worsening. Patient is not taking any oral intake due to texture and taste. I encouraged him to increase oral intake. He agrees. In the meantime will need to continue with IV fluids until oral intake improves and creatinine improves. -Continue to monitor creatinine. Avoid nephrotoxins. -Strict ins and outs. Accelerated hypertension -Controlled with amlodipine and hydralazine. Due to worsening kidney function I would avoid DARVIN or ARBS at this time. Can consider later as OP . To follow up as OP with pCP and consultants. 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 Coronary artery disease with left heart catheterization in 2007 and stent to the LAD - Continue current regimen. History of cocaine use greater than 5 years ago -urine drug screen negative. ? gout -Patient complaining of pain that he usually gets from gout. On clinical exam I do not see any flareup of gout. -Will try a low dose of prednisone to see if this helps with pain. -DVT prophylaxis with SCDs. Discharge Planning Kidney function improving, DC IVFs . Patient improved discharged home in stable condition to follow up as OP with PCP and consultants. Pt Condition on Discharge: Stable Discharge Disposition: Disch w/ Home Health Serv Discharge Time: > 30 minutes Discharge Instructions DIET: Follow Instructions for: Heart Healthy Diet Speech Therapy-Diet Recommends: Honey Thickened Liquids, Mechanical Soft Additional Diet Instructions: no straws, rice or hard bread Activities you can perform: Regular-No Restrictions Follow up Referrals: Neurology - 1 Week PCP Follow-up - 2-3 Days New Medications: Amlodipine (Norvasc) 10 Mg Tab 10 MG PO DAILY for Blood Pressure Management, #30 TAB Aspirin (Px Aspirin) 325 Mg Tab 325 MG PO DAILY for Blood Clot Prevention, #30 TAB Atorvastatin (Atorvastatin) 40 Mg Tab 80 MG PO HS for Cholesterol Management, #30 TAB Hydralazine HCl (Hydralazine HCl) 50 Mg Tablet 50 MG PO Q8HR for Blood Pressure Management, #90 MG Mandi Mays MD Jan 04, 2017 10:32
[2017-01-04] MEDS: ATORVASTATIN 40 MG TAB PO SCH (21:28)
[2017-01-05] VITALS (9 sets, daily range): BP systolic 134–170; BP diastolic 68–77; PULSE 55–74; RESP 16–18; TEMP 97.3–98; O2SAT 96–98
[2017-01-05] MEDS: hydrALAZINE HCL 50 MG TAB PO SCH (05:59)
[2017-01-05] MEDS: INSULIN ASPART SUPPLEMENTAL SCALE SQ SCH ×4 (07:39→21:44)
[2017-01-05] MEDS: ASPIRIN 325 MG TAB PO SCH (07:56)
[2017-01-05] MEDS: predniSONE 20 MG TAB PO SCH (07:56)
[2017-01-05] MEDS: SODIUM CHLORIDE FLUSH BID IV FLUSH SCH ×2 (07:56→21:00)
--- NOTE | 2017-01-05 10:24 | HHI.PR ---
Subjective Remarks leepy. Says he feels tired. Ate breakfast. No n/v/d/c. Says she is improving with PT Objective Vitals Vital Signs Date Time Temp Pulse Resp B/P (MAP) Pulse Ox O2 Delivery O2 Flow Rate FiO2 01/05/17 07:54 97.9 64 16 170/77 (108) 96 01/05/17 07:00 55 01/05/17 04:46 98.0 69 18 158/77 (104) 97 01/05/17 00:07 97.3 62 18 146/70 (95) 98 01/04/17 20:20 97.9 72 16 161/76 (104) 93 01/04/17 20:09 69 01/04/17 16:29 98.3 66 16 162/76 (104) 97 01/04/17 15:15 75 01/04/17 12:21 97.7 75 18 166/77 (106) 96 I/O 01/04/17 01/04/17 01/04/17 01/05/17 01/05/17 01/05/17 07:00 15:00 23:00 07:00 15:00 23:00 Intake Total 720 ml 240 ml Output Total 250 ml 250 ml Balance 470 ml -10 ml Intake Oral 720 ml 240 ml Output Urine Total 250 ml 250 ml Result Diagram: 01/02/17 0953 01/04/17 0611 Objective Remarks GENERAL: Well-nourished, well-developed sitting in chair. NECK: Supple, trachea midline. No JVD or lymphadenopathy. Tracheostomy scar. CARDIOVASCULAR: Regular rate and rhythm without murmurs, gallops, or rubs. RESPIRATORY: Breath sounds equal bilaterally. No accessory muscle use. GASTROINTESTINAL: Abdomen soft, non-tender, nondistended. EXTREMITIES: No cyanosis, or edema. NEUROLOGICAL: Awake, alert, and oriented x 3. Speech dysarthric. 5 out of 5 left-sided strength. 5 out of 5 upper extremity strength of the right side. 4 out of 5 right lower extremity strength. College Intern strength equal b/l. Face symmetric. Bilateral feet no erythema or swelling noted in any joints. No tenderness to palpation the joints. A/P Problem List: (1) Ischemic cerebrovascular accident (CVA) ICD Code: I63.9 - Cerebral infarction, unspecified Status: Acute (2) Accelerated hypertension ICD Code: I10 - Essential (primary) hypertension Status: Acute Assessment and Plan Acute CVA, patient has history of right MCA stroke in 2016 - the patient presented with some left-sided weakness and dysarthria that has improved. -Head CT brain negative. - Brain MRI subacute brainstem infarct. chronic ischemic changes and scattered supratentorial, carotid ultrasound showed mild atherosclerosis. Due to increased symptoms MRI was repeated in which it was stable. -Echo showed mild concentric left ventricular hypertrophy, left ventricular systolic function is low normal with an estimated ejection fraction in the range of 50%, consistent with impaired left ventricular relaxation (grade 1 diastolic dysfunction). [id number] mitral valve regurgitation. -Patient had a barium swallow study which showed that he is aspirating on thin liquids. Recommend mechanical soft honey thick and NO STRAWS. NO HARD BREAD OR RICE. -PT and OT consulted. -Per neurologist blood pressures to be between 130-135 and should not be lower especially with increased symptoms. -continue aspirin 325. Acute on Chronic kidney disease stage III. -Creatinine is worsening. Patient is not taking any oral intake due to texture and taste. I encouraged him to increase oral intake. He agrees. In the meantime will need to continue with IV fluids until oral intake improves and creatinine improves. -Continue to monitor creatinine. Avoid nephrotoxins. -Strict ins and outs. Accelerated hypertension -Controlled with amlodipine and hydralazine. Due to worsening kidney function I would avoid DARVIN or ARBS. 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 Coronary artery disease with left heart catheterization in 2007 and stent to the LAD - Continue current regimen. History of cocaine use greater than 5 years ago -urine drug screen negative. ? gout -Patient complaining of pain that he usually gets from gout. On clinical exam I do not see any flareup of gout. -Will try a low dose of prednisone to see if this helps with pain. -DVT prophylaxis with SCDs. Discharge Planning Kidney function improving, DC IVFs patient can be discharged to SNF however discussed with CM, difficult DC. Patient to have PT daily 7/7 days until imprpved and deemed safe for DC by PT. Mandi Mays MD Jan 05, 2017 10:24
[2017-01-05] MEDS ORDERED: hydrALAZINE HCL 10 MG TAB PO PRN (10:30)
[2017-01-05] MEDS: hydrALAZINE HCL 25 MG TAB PO SCH ×2 (12:09→21:41)
[2017-01-05] MEDS: ATORVASTATIN 40 MG TAB PO SCH (21:41)
[2017-01-06] VITALS (7 sets, daily range): BP systolic 119–168; BP diastolic 61–80; PULSE 64–79; RESP 17–20; TEMP 97.2–98.1; O2SAT 94–98
[2017-01-06] MEDS: hydrALAZINE HCL 25 MG TAB PO SCH ×2 (05:53→13:27)
[2017-01-06] MEDS: ASPIRIN 325 MG TAB PO SCH (09:34)
[2017-01-06] MEDS: SODIUM CHLORIDE FLUSH BID IV FLUSH SCH (09:35)
[2017-01-06] MEDS: predniSONE 20 MG TAB PO SCH (09:35)
--- NOTE | 2017-01-06 10:59 | HHI.PR ---
Subjective Remarks n bed, appears in nad. Says she is improving some with PT. Still very unsteady. No fever ro chills. No dizziness. No chest pain or sob. No new motor deficit. Objective Vitals Vital Signs Date Time Temp Pulse Resp B/P (MAP) Pulse Ox O2 Delivery O2 Flow Rate FiO2 01/06/17 08:45 73 01/06/17 08:05 97.3 65 18 168/80 (109) 95 01/06/17 05:18 97.2 64 18 146/75 (98) 97 01/06/17 00:41 97.4 70 18 119/61 (80) 94 01/05/17 20:12 67 01/05/17 19:49 97.8 71 18 134/74 (94) 97 01/05/17 16:30 97.6 74 18 159/68 (98) 98 01/05/17 15:00 65 01/05/17 12:12 97.4 65 16 150/69 (96) 96 I/O 01/05/17 01/05/17 01/05/17 01/06/17 01/06/17 01/06/17 07:00 15:00 23:00 07:00 15:00 23:00 Intake Total 480 ml Output Total 300 ml Balance 480 ml -300 ml Intake Oral 480 ml Output Urine Total 300 ml # Bowel Movements 1 1 Result Diagram: 01/02/17 0953 01/04/17 0611 Imaging Last Impressions Brain MRI 01/01/17 0000 Signed Impressions: Service Date/Time: Sunday, January 01, 2017 15:47 - CONCLUSION: No acute intracranial abnormality. Chronic white matter changes. Pansinusitis. Eros Wilson MD Modified Barium Swallow 12/31/16 0000 Signed Impressions: Service Date/Time: Saturday, December 31, 2016 00:00 - CONCLUSION: Aspiration occurred with thin liquids. Please refer to speech pathology report for full details. Eros Greer MD Chest X-Ray 12/30/16 0000 Signed Impressions: Service Date/Time: Friday, December 30, 2016 16:49 - CONCLUSION: No acute disease. URBAN DESIGN CONSULTANT shunt is evident. Geo Roman MD FACR Head CT 12/29/16 0750 Signed Impressions: Service Date/Time: Thursday, December 29, 2016 08:15 - CONCLUSION: No evidence of acute hemorrhage, edema, mass or mass effect. Ventriculostomy catheter in good position. No concerning masses are identified. No interval change. Gopi Vaca MD Carotid Artery Ultrasound 12/29/16 0000 Signed Impressions: Service Date/Time: Thursday, December 29, 2016 15:23 - CONCLUSION: Minimal to mild bilateral carotid atherosclerosis. No hemodynamically significant narrowing. Eros Wilson MD Objective Remarks GENERAL: Well-nourished, well-developed sitting in chair. NECK: Supple, trachea midline. No JVD or lymphadenopathy. Tracheostomy scar. CARDIOVASCULAR: Regular rate and rhythm without murmurs, gallops, or rubs. RESPIRATORY: Breath sounds equal bilaterally. No accessory muscle use. GASTROINTESTINAL: Abdomen soft, non-tender, nondistended. EXTREMITIES: No cyanosis, or edema. NEUROLOGICAL: Awake, alert, and oriented x 3. Speech dysarthric. 5 out of 5 left-sided strength. 5 out of 5 upper extremity strength of the right side. 4 out of 5 right lower extremity strength. Pediatric Psychologist strength equal b/l. Face symmetric. Bilateral feet no erythema or swelling noted in any joints. No tenderness to palpation the joints. Procedures none A/P Problem List: (1) Ischemic cerebrovascular accident (CVA) ICD Code: I63.9 - Cerebral infarction, unspecified Status: Acute (2) Accelerated hypertension ICD Code: I10 - Essential (primary) hypertension Status: Acute Assessment and Plan Acute CVA, patient has history of right MCA stroke in 2016 - the patient presented with some left-sided weakness and dysarthria that has improved. -Head CT brain negative. - Brain MRI subacute brainstem infarct. chronic ischemic changes and scattered supratentorial, carotid ultrasound showed mild atherosclerosis. Due to increased symptoms MRI was repeated in which it was stable. -Echo showed mild concentric left ventricular hypertrophy, left ventricular systolic function is low normal with an estimated ejection fraction in the range of 50%, consistent with impaired left ventricular relaxation (grade 1 diastolic dysfunction). [id number] mitral valve regurgitation. -Patient had a barium swallow study which showed that he is aspirating on thin liquids. Recommend mechanical soft honey thick and NO STRAWS. NO HARD BREAD OR RICE. -PT and OT consulted. -Per neurologist blood pressures to be between 130-135 and should not be lower especially with increased symptoms. -continue aspirin 325. Acute on Chronic kidney disease stage III. -Creatinine is worsening. Patient is not taking any oral intake due to texture and taste. I encouraged him to increase oral intake. He agrees. In the meantime will need to continue with IV fluids until oral intake improves and creatinine improves. -Continue to monitor creatinine. Avoid nephrotoxins. -Strict ins and outs. Accelerated hypertension -Controlled with amlodipine and hydralazine. Due to worsening kidney function I would avoid DARVIN or ARBS. 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 Coronary artery disease with left heart catheterization in 2007 and stent to the LAD - Continue current regimen. History of cocaine use greater than 5 years ago -urine drug screen negative. ? gout -Patient complaining of pain that he usually gets from gout. On clinical exam I do not see any flareup of gout. -Will try a low dose of prednisone to see if this helps with pain. -DVT prophylaxis with SCDs. Discharge Planning Kidney function improving, DC IVFs patient can be discharged to SNF however discussed with CM, difficult DC. Patient to have PT daily 7/7 days until improved and deemed safe for DC by PT. aMndi Mays MD Jan 06, 2017 10:59
--- NOTE | 2017-01-06 11:03 | HHI.FF ---
Face to Face Verification Diagnosis: (1) Ischemic cerebrovascular accident (CVA) (2) Accelerated hypertension (3) Cognitive impairment (4) Cerebral aneurysm rupture (5) Hypertensive urgency (6) Acute ischemic right MCA stroke (7) SAH (subarachnoid hemorrhage) (8) Hypertension (9) DARVIN inhibitor-aggravated angioedema (10) Tobacco consumption Home Health Nursing Order: Medical education Signs/symptoms of disease process Medication education-adverse effect Nursing assessment with vital signs I have seen patient Cal Marinelli on 01/06/17. My clinical findings support the need for the requested home health care services because: Ltd mobility - disease progression Deconditioned w/ increased weakness I certify that my clinical findings support that this patient is homebound because: Post-op weakness Impaired cognitive ability/safety Unsteady gait/balance Mandi Mays MD Jan 06, 2017 11:03
== END 2017-01-06 18:32 | disposition home health service (06) | DRG 65 ==
LOC: PHED 07:31 → PHEDA 09:41 → PHICU 11:00 → PH3A 12-30 14:54 → N05B 12-30 23:55
PROVIDERS: ADMIT Hospitalist; ATTEND Hospitalist
DX: I63.9 Cerebral infarction, unspecified (principal); G81.94 Hemiplegia, unspecified affecting left nondominant side; N18.3 Chronic kidney disease, stage 3 (moderate); I12.9 Hypertensive chronic kidney disease with stage 1 through stage 4 chronic kidney disease, or unspecified chronic kidney disease; I16.0 Hypertensive urgency; K21.9 Gastro-esophageal reflux disease without esophagitis; I25.10 Atherosclerotic heart disease of native coronary artery without angina pectoris; M19.90 Unspecified osteoarthritis, unspecified site; F17.210 Nicotine dependence, cigarettes, uncomplicated; R47.1 Dysarthria and anarthria; I34.0 Nonrheumatic mitral (valve) insufficiency; M10.9 Gout, unspecified; R26.81 Unsteadiness on feet; Z79.82 Long term (current) use of aspirin; Z95.5 Presence of coronary angioplasty implant and graft; Z98.2 Presence of cerebrospinal fluid drainage device; Z91.19 Patient's noncompliance with other medical treatment and regimen
CPT/HCPCS: 70450; 70551; 71010; 74230; 76937; 80048; 80061; 80076; 80307; 81001; 82948; 83036; 85025; 85027; 85610; 85730; 90686; 93005; 93225; 93226; 93306; 93880; 96374; J7030; J7040; J7512; Q2038

== ENCOUNTER 2017-07-05 18:49 | Emergency (ER) | payer MEDICAID, MEDICARE ==
[~2017-07-05] VITALS: Ht 172.7 cm; Wt 69.0 kg
[~2017-07-05 18:49] MED LIST changes: +AMLO10 PO; -AMLO5 PO; +ASA325 PO; -ATOR10 PO; +ATOR40TA16 PO; -ECOT81TA2 PO; -HYDR-2768 PO; +HYDR-3800 PO; -HYDRA50 PO; -PRED10 PO
[2017-07-05 19:10] VITALS: BP 209/118; PULSE 72; RESP 18; TEMP 97.4; O2SAT 94
[2017-07-05] MEDS ORDERED: DIME113C RECTAL (19:44)
--- NOTE | 2017-07-05 19:44 | PD ---
HPI Chief Complaint: Lump, Cyst, Hernia Time Seen by Provider: 19:31 Travel History International Travel<30 days: No Contact w/Intl Traveler<30days: No Traveled to known affect area: No History of Present Illness HPI This is a 57-year-old male who had a recent stroke who presents to the emergency department with pain in his buttock area particularly when he wipes, intermittent, moderate severity with no associated fevers or chills. He sometimes has a hard time keeping himself clean because of his recent stroke. He does wear a diaper. He does not have diabetes. PFSH Past Medical History Hx Anticoagulant Therapy: Yes Arthritis: Yes (feet) Asthma: Yes Autoimmune Disease: No Blood Disorders: No Anxiety: No Depression: No Heart Rhythm Problems: No Cancer: No Cardiac Catheterization: Yes (2006) Cardiovascular Problems: Yes (STENTS, AFIB) High Cholesterol: No Chemotherapy: No Chest Pain: No Congestive Heart Failure: No COPD: Yes Cerebrovascular Accident: Yes Coronary Artery Disease: Yes Diabetes: No Diminished Hearing: No Endocrine: No Gastrointestinal Disorders: No GERD: No Glaucoma: No Genitourinary: No Headaches: Yes (OCCASSIONALLY) Hepatitis: No Hiatal Hernia: No Hypertension: Yes Immune Disorder: No Implanted Vascular Access Dvce: No Kidney Stones: No Musculoskeletal: No Neurologic: Yes (cva, aneurysm) Psychiatric: No Reproductive: No Respiratory: Yes (2002trach from concrete inhalation) Immunizations Current: No Migraines: No Myocardial Infarction: No Radiation Therapy: No Renal Failure: No Seizures: No Sickle Cell Disease: No Sleep Apnea: No Thyroid Disease: No Ulcer: No PNEUMOCCOCAL Vaccine (Year): 1 Past Surgical History Abdominal Surgery: No AICD: No Appendectomy: No Arteriovenous Shunt: No Body Medical Devices: [facility] home health shunt Cardiac Surgery: No Cholecystectomy: No Coronary Stent: Yes (X 1) Ear Surgery: No Endocrine Surgery: No Eye Surgery: No Genitourinary Surgery: No Gynecologic Surgery: No Insulin Pump: No Joint Replacement: No Neurologic Surgery: Yes (BRAIN ANUERYSM 2015, SHUNT IN BRAIN) Oral Surgery: No Pacemaker: No Thoracic Surgery: No Tonsillectomy: Yes Other Surgery: Yes (TRACH) Social History Alcohol Use: No (quit) Tobacco Use: Yes (1/2 PPD) Substance Use: No Allergies-Medications (Allergen,Severity, Reaction): Coded Allergies: lisinopril (Unverified Allergy, Severe, Angioedema, 07/05/17) Reported Meds & Prescriptions Reported Meds & Active Scripts Active Px Aspirin (Aspirin) 325 Mg Tab 325 Mg PO DAILY Norvasc (Amlodipine Besylate) 10 Mg Tab 10 Mg PO DAILY Hydralazine HCl 50 Mg Tablet 50 Mg PO Q8HR Atorvastatin (Atorvastatin Calcium) 40 Mg Tab 80 Mg PO HS Review of Systems Except as stated in HPI: all other systems reviewed are Neg Physical Exam Narrative GENERAL: Well-appearing, no acute distress, nontoxic SKIN: Erythema around the rectum with no palpable perirectal or perianal abscess. No hemorrhoids. No anal fissures. HEAD: Atraumatic. Normocephalic. ENT: No nasal bleeding or discharge. Moist mucous membranes NEUROLOGICAL: Awake and alert. No obvious cranial nerve deficits. Mild dysarthria. Moving all extremities. PSYCHIATRIC: Appropriate mood and affect; insight and judgment normal. Data Data Last Documented VS Vital Signs Date Time Temp Pulse Resp B/P (MAP) Pulse Ox O2 Delivery O2 Flow Rate FiO2 07/05/17 19:10 97.4 72 18 209/118 (148) 94 MDM Medical Decision Making Medical Screen Exam Complete: Yes Emergency Medical Condition: Yes Differential Diagnosis Perianal abscess, perirectal abscess, Karolyn, diaper dermatitis Narrative Course This is a 57-year-old male who presents to the emergency department with pain around his rectum particularly when he defecates. Rectal exam is normal and I do not appreciate any fullness to suggest a perirectal or perianal abscess. I think his discomfort is secondary to skin breakdown around the rectum likely due to poor hygiene. Patient was advised to use A and D ointment and to return if he has worsening symptoms. He follows up with Dr. Gardner in 2 weeks. Diagnosis Primary Impression: Irritant dermatitis Patient Instructions: General Instructions Additional Instructions: Apply A&D ointment every time you use the restroom. Follow up with your primary care physician, and return to the emergency department if your symptoms worsen as sometimes abscesses can emerge later. Med/Other Pt SpecificInfo: Prescription(s) given Scripts Dimethicone-Zinc Oxide-Vitamin (A & D Zinc Oxide) 1 %-10 % Cre 1 APPLIC RECTAL TID, #1 TUBE Prov: Naya Javed MD 07/05/17 Disposition: 01 DISCHARGE HOME Condition: Stable Naya Javed MD July 05, 2017 19:44
[2017-07-05 19:49] VITALS: BP 177/74
== END 2017-07-05 19:55 | disposition home or self-care (01) ==
LOC: PHEFT 18:49
DX: L24.9 Irritant contact dermatitis, unspecified cause (principal); I10 Essential (primary) hypertension; I25.10 Atherosclerotic heart disease of native coronary artery without angina pectoris; I48.91 Unspecified atrial fibrillation; J44.9 Chronic obstructive pulmonary disease, unspecified; M19.079 Primary osteoarthritis, unspecified ankle and foot; F17.200 Nicotine dependence, unspecified, uncomplicated; Z95.5 Presence of coronary angioplasty implant and graft; Z86.73 Personal history of transient ischemic attack (TIA), and cerebral infarction without residual deficits
CPT/HCPCS: 99284